=== PATIENT | female | born 2000 | race Caucasian/White ===

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

== ENCOUNTER 2021-07-18 17:59 | Emergency (ER) | payer OTHER, MEDICAID, SELFPAY ==
[2021-07-18] VITALS (11 sets, daily range): BP systolic 108–119; BP diastolic 58–81; PULSE 62–101; RESP 15–25; TEMP 36.7; O2SAT 91–100; BMI 17.3
--- NOTE | 2021-07-18 22:06 | ED_ITS ---
HPI - General Adult <Barbi Vasquez MD - Last Filed: 07/22/21 07:26> General Chief complaint: Weakness Stated complaint: weakness, has had couple hits to head,feels dehy Time Seen by Provider: 07/18/21 22:06 Source: patient Mode of arrival: Ambulatory History of Present Illness HPI narrative: 20-year-old woman with complex psychiatric history presents with concerns that she is dehydrated. She states that she had been receiving care through [facility] in [place] previously however for therapy to be effective for her she needs in person treatment. She states she had seen a psychiatrist previously and had been on medications but is no longer using anything. She has complaints of worsening depression, obsessive-compulsive disorder where she tries to find the closest thing to hit to harm herself that will cause the least amount of harm. She has a history of cutting but has not d one that in a number of years. She finds when she gets frustrated her OCD gets worse and she wants to hurt things and herself more. She has complaints of difficulty with eating or swallowing that are essentially psychogenic. She states that she has to be physically and emotionally hungry to be able to tolerate any p.o. intake including liquids. About a year ago she reports losing almost 25% of her body weight and over the last 6 months she notes that her weight will fluctuate up and down but she has continued to gradually lose weight to the point where she is getting weaker. She had an episode 4 days ago where she was so weak that she could not actually stand up and walk and this caused increased frustration which exacerbated her OCD. She does not describe specific suicidal ideation however she states that she has not had anything to eat or drink in the last 5 days. She does have some Gatorade and states that she understands she needs to drink it but finds that she cannot physically do so. Comes in she comes in requesting help with the presumed dehydration and overall weakness. When asked if she feels that she needs to be in the hospital for her psychiatric issues she reports that she thinks that she does however she was hoping to see her father this weekend and go to some type of outdoor concert a week from now suggesting advanced planning and arguing against suicidal ideation. She denies headaches, chest pain, palpitations she notes that she gets short of breath with activity is she has gotten weaker and weaker. She is having no significant headaches. No nausea vomiting or diarrhea as long as she eats no food. Related Data Home Medications Medication Instructions Recorded Confirmed control PO 07/18/21 07/18/21 Vitamin D PO 07/18/21 07/18/21 Previous Rx's Medication Instructions Recorded metoclopramide HCl 10 mg 10 mg PO Q6H PRN #10 tab 07/19/21 disintegrating tablet Allergies Allergy/AdvReac Type Severity Reaction Status Date / Time No Known Drug Allergies Allergy Verified 07/18/21 18:04 Review of Systems <Barbi Vasquez MD - Last Filed: 07/22/21 07:26> Review of Systems Narrative: Remainder of complete review of systems is otherwise unremarkable except for that included in the HPI. Patient History <Barbi Vasquez MD - Last Filed: 07/22/21 07:26> Medical History (Updated 07/19/21 @ 03:31 by Barbi Vasquez MD) Depression with anxiety Eating disorder Obsessive compulsive disorder Social History Smoking Status: Never smoker Smoking Status: Never smoker alcohol intake frequency: holidays/special occasions only Substance Use Type: marijuana Exam <Barbi Vasquez MD - Last Filed: 07/22/21 07:26> Initial Vital Signs Initial Vital Signs: Vital Signs Temperature 98.1 F 07/18/21 18:04 Pulse Rate 101 H 07/18/21 18:04 Respiratory Rate 15 07/18/21 18:04 Blood Pressure 112/80 07/18/21 18:04 Pulse Oximetry 98 07/18/21 18:04 General: Very thin but not quite to the point of cachexia, in no acute d istress. Able to give a complete and coherent history. HEENT: Moist mucous membranes, normal sclera with reactive pupils, Neck: No JVD, supple Respiratory: Lungs are clear to auscultation, no wheezing no rales no rhonchi. Full and symmetrical air movement Cardiac: Regular rate and rhythm no murmurs no bruits Abdomen: Soft, nontender, good bowel tones, no flank pain Skin: Warm and dry, no rashes, no recent signs of self-harm Neurologic: Globally weak but otherwise Grossly neurologically intact with no obvious asymmetries or abnormalities Extremities: 3 to 4-day-old bruises to the lateral aspect and posterior aspect of her right thigh after a fall. Otherwise well perfused Psych: Cooperative, flat affect and while she describes all of her difficulties with eating and swallowing she seems very distant with poor overall insight <Danay Morrissey DO - Last Filed: 07/19/21 19:51> Initial Vital Signs Initial Vital Signs: Vital Signs Temperature 98.1 F 07/18/21 18:04 Pulse Rate 101 H 07/18/21 18:04 Respiratory Rate 15 07/18/21 18:04 Blood Pressure 112/80 07/18/21 18:04 Pulse Oximetry 98 07/18/21 18:04 Course <Barbi Vasquez MD - Last Filed: 07/22/21 07:26> Orders Ordered: Discontinued Medications Sodium Chloride (Normal Saline 0.9%) 1,000 mls @ 1,000 mls/hr IV BOLUS ONE Stop: 07/18/21 23:19 Last Infusion: 07/19/21 00:25 Dose: 0 mls/hr Documented by: Admin: 07/18/21 22:38 Dose: 1,000 mls/hr Documented by: SMITHA Potassium Phosphate 15 mmol/ (Sodium Chloride) 255 mls @ 63.75 mls/hr IV NOW ONE Stop: 07/19/21 02:00 Last Infusion: 07/19/21 07:05 Dose: 0 mls/hr Documented by: Admin: 07/19/21 02:30 Dose: 63.75 mls/hr Documented by: SMITHA Potassium Phosphate 15 mmol/ (Sodium Chloride) 255 mls @ 63.75 mls/hr IV NOW ONE Stop: 07/19/21 02:28 Last Admin: 07/19/21 03:03 Dose: Not Given Documented by: LAURA Magnesium Sulfate (Magnesium Sulfate) 2 gm in 50 mls @ 150 mls/hr IV NOW ONE Stop: 07/19/21 03:48 Last Infusion: 07/19/21 04:50 Dose: 0 mls/hr Documented by: OSCAR Cosigned by: [email or web address] Admin: 07/19/21 04:02 Dose: 150 mls/hr Documented by: OSCAR Cosigned by: SMITHA Metoclopramide HCl (Metoclopramide 10 Mg/2 Ml Inj) 10 mg IV NOW ONE Stop: 07/19/21 19:06 Last Admin: 07/19/21 19:17 Dose: 10 mg Documented by: ILSA Vital Signs Vital signs: Vital Signs - 8 hr 07/19/21 12:00 07/19/21 12:30 07/19/21 13:00 Pulse Rate 58 L 52 L 82 Respiratory Rate 15 15 Blood Pressure Pulse Oximetry 98 98 98 07/19/21 13:30 07/19/21 14:00 07/19/21 14:30 Pulse Rate 55 L 74 69 Respiratory Rate 15 16 15 Blood Pressure Pulse Oximetry 99 98 98 07/19/21 18:51 Pulse Rate 84 Respiratory Rate 18 Blood Pressure 121/65 Pulse Oximetry 98 <Danay Morrissey DO - Last Filed: 07/19/21 19:51> Orders Ordered: Discontinued Medications Sodium Chloride (Normal Saline 0.9%) 1,000 mls @ 1,000 mls/hr IV BOLUS ONE Stop: 07/18/21 23:19 Last Infusion: 07/19/21 00:25 Dose: 0 mls/hr Documented by: Admin: 07/18/21 22:38 Dose: 1,000 mls/hr Documented by: SMITHA Potassium Phosphate 15 mmol/ (Sodium Chloride) 255 mls @ 63.75 mls/hr IV NOW ONE Stop: 07/19/21 02:00 Last Infusion: 07/19/21 07:05 Dose: 0 mls/hr Documented by: Admin: 07/19/21 02:30 Dose: 63.75 mls/hr Documented by: SMITHA Potassium Phosphate 15 mmol/ (Sodium Chloride) 255 mls @ 63.75 mls/hr IV NOW ONE Stop: 07/19/21 02:28 Last Admin: 07/19/21 03:03 Dose: Not Given Documented by: LAURA Magnesium Sulfate (Magnesium Sulfate) 2 gm in 50 mls @ 150 mls/hr IV NOW ONE Stop: 07/19/21 03:48 Last Infusion: 07/19/21 04:50 Dose: 0 mls/hr Documented by: OSCAR Cosigned by: [email or web address] Admin: 07/19/21 04:02 Dose: 150 mls/hr Documented by: OSCAR Cosigned by: SMITHA Metoclopramide HCl (Metoclopramide 10 Mg/2 Ml Inj) 10 mg IV NOW ONE Stop: 07/19/21 19:06 Last Admin: 07/19/21 19:17 Dose: 10 mg Documented by: ILSA Vital Signs Vital signs: Vital Signs - 8 hr 07/19/21 12:00 07/19/21 12:30 07/19/21 13:00 Pulse Rate 58 L 52 L 82 Respiratory Rate 15 15 Blood Pressure Pulse Oximetry 98 98 98 07/19/21 13:30 07/19/21 14:00 07/19/21 14:30 Pulse Rate 55 L 74 69 Respiratory Rate 15 16 15 Blood Pressure Pulse Oximetry 99 98 98 07/19/21 18:51 Pulse Rate 84 Respiratory Rate 18 Blood Pressure 121/65 Pulse Oximetry 98 Medical Decision Making <Barbi Vasquez MD - Last Filed: 07/22/21 07:26> Lab Data Result diagrams: 07/18/21 22:30 07/18/21 22:30 Labs: Lab Results 07/18/21 07/18/21 07/18/21 Range/Units 22:30 22:30 22:30 WBC 9.0 (4.5-11.0) X10^3/uL RBC 4.97 (4.0-5.2) X10^6/uL Hgb 14.8 (12.0-16.0) g/dL Hct 43.2 (36-46) % MCV 87.0 (80-100) fL MCH 29.8 (26-34) PG MCHC 34.3 (30-36) % RDW 13.7 (11.6-14.8) % Plt Count 233 (150-400) X10^3/uL Neut % (Auto) 59.3 (50-75) % Lymph % (Auto) 29.6 (25-40) % Finney % (Auto) 9.2 (3-14) % Eos % (Auto) 1.2 L (2-4) % Baso % (Auto) 0.7 (0-2) % Neut # (Auto) 5300 (3671-6807) /uL Lymph # (Auto) 2700 (5340-7268) /uL Finney # (Auto) 800 (0-900) /uL Eos # (Auto) 100 (0-450) /uL Baso # (Auto) 100 (0-100) /uL Sodium 141 (137-145) mmol/L Potassium 4.3 (3.4-5.1) mmol/L Chloride 106 (98-107) mmol/L Carbon Dioxide 26 (22-32) mmol/L BUN 18 H (7-17) mg/dL Creatinine 0.76 (0.52-1.04) mg/dL Estimated GFR > 60 (>60) mL/min BUN/Creatinine Ratio 23.7 H (6-22) Glucose 86 (70-100) mg/dL Calcium 9.1 (8.4-10.2) mg/dL Phosphorus 3.6 L (4.5-5.5) mg/dL Magnesium 2.2 (1.6-2.3) mg/dL Total Bilirubin 0.8 (0.2-1.3) mg/dL AST 24 (14-36) IU/L ALT 14 (<35) IU/L Alkaline Phosphatase 63 (38-126) U/L Total Protein 8.2 (6.3-8.2) g/dL Albumin 4.8 (3.5-5.0) g/dL Globulin 3.4 (1.7-4.1) g/dL Albumin/Globulin Ratio 1.4 (1.0-2.8) TSH (0.47-4.68) uIU/mL Urine RBC (0-5/HPF) Urine WBC (0-5/HPF) Ur Squamous Epith Cells (0-5/HPF) Urine Bacteria (None) Ur Culture Indicated? SARS-CoV-2 (PCR) (Negative) 07/18/21 07/18/21 07/19/21 Range/Units 22:30 22:35 02:30 WBC (4.5-11.0) X10^3/uL RBC (4.0-5.2) X10^6/uL Hgb (12.0-16.0) g/dL Hct (36-46) % MCV (80-100) fL MCH (26-34) PG MCHC (30-36) % RDW (11.6-14.8) % Plt Count (150-400) X10^3/uL Neut % (Auto) (50-75) % Lymph % (Auto) (25-40) % Finney % (Auto) (3-14) % Eos % (Auto) (2-4) % Baso % (Auto) (0-2) % Neut # (Auto) (9370-5591) /uL Lymph # (Auto) (7516-0503) /uL Finney # (Auto) (0-900) /uL Eos # (Auto) (0-450) /uL Baso # (Auto) (0-100) /uL Sodium (137-145) mmol/L Potassium (3.4-5.1) mmol/L Chloride (98-107) mmol/L Carbon Dioxide (22-32) mmol/L BUN (7-17) mg/dL Creatinine (0.52-1.04) mg/dL Estimated GFR (>60) mL/min BUN/Creatinine Ratio (6-22) Glucose (70-100) mg/dL Calcium (8.4-10.2) mg/dL Phosphorus (4.5-5.5) mg/dL Magnesium (1.6-2.3) mg/dL Total Bilirubin (0.2-1.3) mg/dL AST (14-36) IU/L ALT (<35) IU/L Alkaline Phosphatase (38-126) U/L Total Protein (6.3-8.2) g/dL Albumin (3.5-5.0) g/dL Globulin (1.7-4.1) g/dL Albumin/Globulin Ratio (1.0-2.8) TSH 0.969 (0.47-4.68) uIU/mL Urine RBC 30-100/hpf H (0-5/HPF) Urine WBC 0-1/hpf (0-5/HPF) Ur Squamous Epith Cells 0-1 /hpf (0-5/HPF) Urine Bacteria Occasional (0-1) (None) Ur Culture Indicated? Cult not indicated SARS-CoV-2 (PCR) Negative (Negative) Point of Care Testing Test Results Negative Urine Dip Bedside Urine Glucose Negative Bedside Urine Bilirubin - Negative Bedside Urine Ketone + 15 Urine Specific [place] 1.025 Bedside Urine Occult Blood +++ Bedside Urine pH 6.0 Bedside Urine Protein + 30 Bedside Urine Urobilinogen - Negative Bedside Urine Nitrite - Negative Bedside Urine Leukocytes - Negative Esterase Point of care testing: Point of Care Testing Test Results Negative Urine Dip Bedside Urine Glucose Negative Bedside Urine Bilirubin - Negative Bedside Urine Ketone + 15 Urine Specific [place] 1.025 Bedside Urine Occult Blood +++ Bedside Urine pH 6.0 Bedside Urine Protein + 30 Bedside Urine Urobilinogen - Negative Bedside Urine Nitrite - Negative Bedside Urine Leukocytes - Negative Esterase MDM Narrative Medical decision making narrative: 20-year-old woman with worsening psychiatric symptoms most concerning is her inability to eat or drink unless she is both physically and emotionally prepared to do so, with being not emotionally prepared to eat or drink for the last 4+ days. Significant weight loss. She has no acute renal failure however phosphorus and magnesium were both low. In the setting of chronic starvation and eating disorders electrolyte abnormalities and refeeding syndrome can be concerning. Phosphorus and magnesium are given IV along with 2 L of IV fluid and she is maintained on telemetry to look for any type of cardiac arrhythmias. She does have blood in her urine but is currently menstruating and has no dysuria symptoms. At this time she is willing to consider inpatient treatment for her obsessive- compulsive disorder and difficulty in eating and drinking. She is not currently suicidal. She does show signs of planning for future activities. Poor overall insight. Concerned that her foot extended fast is causing her overall weakness. Along with phosphorus her magnesium will be replaced. After this, she will be medically cleared and will need social work evaluation. She remains voluntary at this point but will likely benefit from inpatient help with her worsening eating disorder, obsessive-compulsive disorder and bouts of severe depression. <Danay Morrissey, - Last Filed: 07/19/21 19:51> Lab Data Labs: Lab Results 07/18/21 07/18/21 07/18/21 Range/Units 22:30 22:30 22:30 WBC 9.0 (4.5-11.0) X10^3/uL RBC 4.97 (4.0-5.2) X10^6/uL Hgb 14.8 (12.0-16.0) g/dL Hct 43.2 (36-46) % MCV 87.0 (80-100) fL MCH 29.8 (26-34) PG MCHC 34.3 (30-36) % RDW 13.7 (11.6-14.8) % Plt Count 233 (150-400) X10^3/uL Neut % (Auto) 59.3 (50-75) % Lymph % (Auto) 29.6 (25-40) % Finney % (Auto) 9.2 (3-14) % Eos % (Auto) 1.2 L (2-4) % Baso % (Auto) 0.7 (0-2) % Neut # (Auto) 5300 (4242-6978) /uL Lymph # (Auto) 2700 (5908-4010) /uL Finney # (Auto) 800 (0-900) /uL Eos # (Auto) 100 (0-450) /uL Baso # (Auto) 100 (0-100) /uL Sodium 141 (137-145) mmol/L Potassium 4.3 (3.4-5.1) mmol/L Chloride 106 (98-107) mmol/L Carbon Dioxide 26 (22-32) mmol/L BUN 18 H (7-17) mg/dL Creatinine 0.76 (0.52-1.04) mg/dL Estimated GFR > 60 (>60) mL/min BUN/Creatinine Ratio 23.7 H (6-22) Glucose 86 (70-100) mg/dL Calcium 9.1 (8.4-10.2) mg/dL Phosphorus 3.6 L (4.5-5.5) mg/dL Magnesium 2.2 (1.6-2.3) mg/dL Total Bilirubin 0.8 (0.2-1.3) mg/dL AST 24 (14-36) IU/L ALT 14 (<35) IU/L Alkaline Phosphatase 63 (38-126) U/L Total Protein 8.2 (6.3-8.2) g/dL Albumin 4.8 (3.5-5.0) g/dL Globulin 3.4 (1.7-4.1) g/dL Albumin/Globulin Ratio 1.4 (1.0-2.8) TSH (0.47-4.68) uIU/mL Urine RBC (0-5/HPF) Urine WBC (0-5/HPF) Ur Squamous Epith Cells (0-5/HPF) Urine Bacteria (None) Ur Culture Indicated? SARS-CoV-2 (PCR) (Negative) 07/18/21 07/18/21 07/19/21 Range/Units 22:30 22:35 02:30 WBC (4.5-11.0) X10^3/uL RBC (4.0-5.2) X10^6/uL Hgb (12.0-16.0) g/dL Hct (36-46) % MCV (80-100) fL MCH (26-34) PG MCHC (30-36) % RDW (11.6-14.8) % Plt Count (150-400) X10^3/uL Neut % (Auto) (50-75) % Lymph % (Auto) (25-40) % Finney % (Auto) (3-14) % Eos % (Auto) (2-4) % Baso % (Auto) (0-2) % Neut # (Auto) (5833-7468) /uL Lymph # (Auto) (2011-4991) /uL Finney # (Auto) (0-900) /uL Eos # (Auto) (0-450) /uL Baso # (Auto) (0-100) /uL Sodium (137-145) mmol/L Potassium (3.4-5.1) mmol/L Chloride (98-107) mmol/L Carbon Dioxide (22-32) mmol/L BUN (7-17) mg/dL Creatinine (0.52-1.04) mg/dL Estimated GFR (>60) mL/min BUN/Creatinine Ratio (6-22) Glucose (70-100) mg/dL Calcium (8.4-10.2) mg/dL Phosphorus (4.5-5.5) mg/dL Magnesium (1.6-2.3) mg/dL Total Bilirubin (0.2-1.3) mg/dL AST (14-36) IU/L ALT (<35) IU/L Alkaline Phosphatase (38-126) U/L Total Protein (6.3-8.2) g/dL Albumin (3.5-5.0) g/dL Globulin (1.7-4.1) g/dL Albumin/Globulin Ratio (1.0-2.8) TSH 0.969 (0.47-4.68) uIU/mL Urine RBC 30-100/hpf H (0-5/HPF) Urine WBC 0-1/hpf (0-5/HPF) Ur Squamous Epith Cells 0-1 /hpf (0-5/HPF) Urine Bacteria Occasional (0-1) (None) Ur Culture Indicated? Cult not indicated SARS-CoV-2 (PCR) Negative (Negative) Point of Care Testing Test Results Negative Urine Dip Bedside Urine Glucose Negative Bedside Urine Bilirubin - Negative Bedside Urine Ketone + 15 Urine Specific [place] 1.025 Bedside Urine Occult Blood +++ Bedside Urine pH 6.0 Bedside Urine Protein + 30 Bedside Urine Urobilinogen - Negative Bedside Urine Nitrite - Negative Bedside Urine Leukocytes - Negative Esterase Point of care testing: Point of Care Testing Test Results Negative Urine Dip Bedside Urine Glucose Negative Bedside Urine Bilirubin - Negative Bedside Urine Ketone + 15 Urine Specific [place] 1.025 Bedside Urine Occult Blood +++ Bedside Urine pH 6.0 Bedside Urine Protein + 30 Bedside Urine Urobilinogen - Negative Bedside Urine Nitrite - Negative Bedside Urine Leukocytes - Negative Esterase ECG Data Interpretation: Normal sinus rhythm rate 63 NJ interval 132 QRS [address] changes MDM Narrative Medical decision making narrative: 20-year-old woman with worsening psychiatric symptoms most concerning is her inability to eat or drink unless she is both physically and emotionally prepared to do so, with being not emotionally prepared to eat or drink for the last 4+ days. Significant weight loss. She has no acute renal failure however phosphorus and magnesium were both low. In the setting of chronic starvation and eating disorders electrolyte abnormalities and refeeding syndrome can be concerning. Phosphorus and magnesium are given IV along with 2 L of IV fluid and she is maintained on telemetry to look for any type of cardiac arrhythmias. She does have blood in her urine but is currently menstruating and has no dysuria symptoms. At this time she is willing to consider inpatient treatment for her obsessive- compulsive disorder and difficulty in eating and drinking. She is not currently suicidal. She does show signs of planning for future activities. Poor overall insight. Concerned that her foot extended fast is causing her overall weakness. Along with phosphorus her magnesium will be replaced. After this, she will be medically cleared and will need social work evaluation. She remains voluntary at this point but will likely benefit from inpatient help with her worsening eating disorder, obsessive-compulsive disorder and bouts of severe depression. [facility]-patient has been signed out to me by Dr. Moreira. Seen evaluated patient myself. Replacing electrolytes EKG does not show any abnormalities. She has been seen evaluated by social service coordinator agree that inpatient may require be beneficial to her. She is voluntarily agrees to go. Unfortunately there are no beds available. Patient is reassessed she has eaten some throughout the day. She has a little bit nauseous now. Discussion with her at this time she feels safe in able to go home. She is encouraged to return emergency department at any time. She seems reliable in responsible she brought herself here at this time. She is not suicidal or homicidal. He is able to contract for safety. She has outpatient follow-up in 2 days on Thursday. She is given crisis resources. At this time she did have some mild electrolyte abnormalities possible refeeding syndrome although exceedingly rare and normal EKG. She has tolerated food here. Discharge Plan Departure Patient Disposition: Home Clinical Impression: Eating disorder, OCD (obsessive compulsive disorder), Depression, Excessive weight loss, Malnutrition, Hypophosphatasia, Hypomagnesemia Instructions: Eating Healthfully: Tips to Make It Easier Activity Restrictions/Additional Instructions: *You have been diagnosed with OCD, eating disorders *What to do: I do recommend that you talk with the talent coordinator and may help you. Try to increase your and fluid intake If you are feeling suicidal or having suicidal thoughts: Call: Suicide Hotline: Visit: www.[employer] Text: 981245 *Continue to take medications as directed Reglan 5 mg every 6 hours needed for nausea *Follow up with your primary care provider in 2-3 days or call [phone] please see psychiatrist referral on Thursday as arranged *Return to ER if you should have thoughts of harming self decreased eating or any new, worsening or concerning symptoms Prescriptions: New metoclopramide HCl 10 mg tablet,disintegrating 10 mg PO Q6H PRN (Reason: nausea and vomiting) Qty: 10 0RF No Action control PO 0RF Vitamin D PO 0RF Referrals: Alee Ritter MD [Primary Care Provider] -
[2021-07-18] MEDS: SODIUM CHLORIDE 0.9% 1,000 ML 1000 ML IV (22:38)
[2021-07-18 22:43] LABS: Add Manual Diff / Slide Review NO; Basophils Absolute Auto 100 /uL (0-100); Basophils Percent Auto 0.7 % (0-2); Eosinophils Absolute Auto 100 /uL (0-450); Eosinophils Percent Auto 1.2 % (2-4); Hematocrit 43.2 % (36-46); Hemoglobin 14.8 g/dL (12.0-16.0); Lymphocytes Absolute Auto 2700 /uL (1100-4500); Lymphocytes Percent Auto 29.6 % (25-40); Mean Corpuscular HGB Conc 34.3 % (30-36); Mean Corpuscular Hemoglobin 29.8 PG (26-34); Monocytes Absolute Auto 800 /uL (0-900); Monocytes Percent Auto 9.2 % (3-14); Neutrophils Absolute Auto 5300 /uL (1500-7000); Neutrophils Percent Auto 59.3 % (50-75); Platelet Count 233 X10^3/uL (150-400); Red Blood Cell Count 4.97 X10^6/uL (4.0-5.2); Red Cell Distribution Width 13.7 % (11.6-14.8)
[2021-07-18 22:49] LABS: Alanine Aminotransferase 14 IU/L (<35); Albumin 4.8 g/dL (3.5-5.0); Albumin Globulin Ratio 1.4 (1.0-2.8); Alkaline Phosphatase 63 U/L (38-126); Aspartate Aminotransferase 24 IU/L (14-36); BUN Creatinine Ratio 23.7 (6-22); Bilirubin Total 0.8 mg/dL (0.2-1.3); Blood Urea Nitrogen 18 mg/dL (7-17); Calcium 9.1 mg/dL (8.4-10.2); Carbon Dioxide 26 mmol/L (22-32); Chloride 106 mmol/L (98-107); Estimated Glomerular Filt Rate > 60 mL/min (>60); Globulin 3.4 g/dL (1.7-4.1); Glucose 86 mg/dL (70-100); HEMOLYSIS < 15 (0-50); Phosphorous 3.6 mg/dL (4.5-5.5); Potassium 4.3 mmol/L (3.4-5.1); Sodium 141 mmol/L (137-145); Total Protein 8.2 g/dL (6.3-8.2)
[2021-07-18 22:54] LABS: COVID19 -Nasal RAPID Negative (Negative)
[2021-07-18 23:05] LABS: Magnesium 2.2 mg/dL (1.6-2.3)
[2021-07-18 23:36] LABS: Thyroid Stimulating Hormone 0.969 uIU/mL (0.47-4.68)
[2021-07-19] VITALS (34 sets, daily range): BP systolic 99–121; BP diastolic 56–75; PULSE 52–84; RESP 12–35; O2SAT 95–100
[2021-07-19] MEDS: POTASSIUM PHOSPHATE 15 MMOL in SODIUM CHLORIDE 0.9% 250 ML 63.75 MMOL IV (02:30)
[2021-07-19 03:22] LABS: Bacteria Urine Occasional (0-1); RBC Urine 30-100/HPF (0-5/HPF); Squamous Epithelial Cell Urine 0-1 /HPF (0-5/HPF); WBC Urine 0-1/HPF (0-5/HPF)
[2021-07-19 03:23] LABS: Culture Indicated Urine Cult Not Indicated
[2021-07-19] MEDS: MAGNESIUM SULFATE 2 GM/50 ML PIGGYBACK IV (04:02)
--- NOTE | 2021-07-19 13:57 | CM.SWNOTE ---
BREEDING TECHNICIAN Assessment BREEDING TECHNICIAN - Supervisor Drawing Assessment BREEDING TECHNICIAN - Supervisor Drawing Assessment Time Spent with Patient Start date 07/19/21 Visit Start Time 12:35 End date 07/19/21 Visit End Time 13:05 Total time Care Management spent on 30 minutes patient visit-in minutes Mental Health Screening Include Onset, Duration, Intensity Presenting Problem Patient presents to the ED due to concerns of dehydration. Patient endorses increasing and worsening depression, obsessive compulsive disorder and recent self harm. Patient endorses increasing SI since last December with thoughts of plans. Patient denies curernt SI. Patient endorses she initially went to urgent care and they recommended that patient be seen at the Emergency Department. Precipitating Event(s) Patient endorses increased frustration with herself, ongoing thoughts of worthlessness and uselessness when thinking about herself and her daily life. Patient has been unable to work or go to school and spends her days mostly trying to rest and not energized enough to engage in activities of interest. Patient Strengths Patient is seeking help, patient plans to try to reconnect with previous MH provider from 2 years ago. Current Behavioral Health Provider(s) Patient does not have a [facility] Facility, Provider, Ph. # current MH provider. Patient states she previously saw Dr. Alexey Steele at [facility] ( Ph. # [phone]), patient states she also saw various therapists there and has hx of prescriptions. Patient denies current rx. Psych. Hx Mental Health and Chemical Patient has hx of Depression, Dependency Anxiety, OCD, self harm, SI and eating disorder. Patient endorses occasional marijuana use when anxious. Patient denies ETOH and other substance use and states that ETOH made her sick. Family Hx of Behavioral Abuse None reported. Patient endorses her mother has hx of MH and is seeing a psychiatrist. Psychiatric Hospitalizations (date(s)/ No hx location) Psychosocial information & Support Patient is 20 y/o female who Systems resides with mother and younger sister in [place]. Patient endorses her father lives in [place], [place] and she visits him almost weekly. School/Work Patient states she is not employed or going to school. 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 Legal Concerns Legal Matters - Outstanding Issues None reported Mental Status Orientation (Person/Place/Time) A/Ox4 Stated Mood not too terribly bad Affect (Congruent with Mood?) flat, tearful at times, congruent with mood Thought Content - Specify/Describe Patient denies paranoia, Obsessions, Delusions, Hallucinations visual hallucinations and auditory hallucinations. Patient endorses constant worry and anxiety. Thought Processes (Exmperg-Olpkwbub-Ctvu coherent Hzhfarsc-Eztapjkf-Btfawrppty- Ehguuhvrmojqez-Qxadkyd-Wwshsxmlqdtz- Thought Blocking) Speech (Bhzbnj-Rhgm-Clkuzyh-Rapid-Soft- soft/normal Loud-Pressured) Motor (Juihhy-Kxqoybnlo-Ngzo-Other) normal, not formally assessed Insight (Lgsx-Jldu-Zwrs/Limited) fair/limited due to age Judgement (Zxui-Vecq-Cgrh/Limited) fair/limited due to age Impulse Control (Adequate-Impaired) adequate Memory (Nkfizitfi-Rgwlre-Lxkjqm, intact, not formally assessed Impaired-Intact) Concentration (Intact-Impaired) intact Attention (Intact-Impaired) intact Behavior (Appropriate-Inappropriate) appropriate Additional Comment Patient presents as calm, communicative and cooperative. Risk Assessment Suicidal Ideation (Plan) Yes Homicidal Ideation (Plan) No Comment Patient denies HI. Patient denies current SI at the moment but states her SI has been increasing and worsening since December 2020. Patient endorses thoughts of not drinking water and walking until she collapsed. Patient has currently gone two days without drinking prior to visit to ED. Patient endorses her understanding that when she doesn't eat she is harming herself. Patient endorses history of self harm by cutting and hitting self. Patient endorses a couple days ago she was upset and hit her leg and later found it to be bruised. Patient endorses hx of breaking a glass on her thumb in April 2020. Per EMR, patient was seen for this incident in March 2020. Patient endorses that she did not state that the intent was self harm due to worry of concern from parents. Patient acknowledges today that patient was engaging in self harm during that incident. Intervention Intervention BREEDING TECHNICIAN enters room to meet with patient. Patient endorses hx of eating issues, depression, anxiety, OCD, SI and self harm. Patient endorses that she currently does not have a MH provider but is hoping to re-establish care soon. Patient endorses hopelessness, thoughts of worthlessness and being useless. Patient endorses issues with sleeping and concern for her energy to engage in daily activities. BREEDING TECHNICIAN discusses voluntary inpatient hospitalization and patient endorses agreement and understanding. It is the opinion of this BREEDING TECHNICIAN that patient is gravely disabled and in need of voluntary inpatient hospitalization for safety, medication management and crisis stabilization. BREEDING TECHNICIAN reviews the above with ED provider Dr. Morrissey who indicates agreement and understanding. Plan RA Plan BREEDING TECHNICIAN to seek voluntary inpatient bed for patient when medically clear. Sherlyn Zavala, [employer]
--- NOTE | 2021-07-19 18:43 | CM.SWNOTE ---
BARREL FILLER HEAD Note BARREL FILLER HEAD call [facility] for voluntary bed census. BARREL FILLER HEAD calls [facility], it is reported the unit is full. BARREL FILLER HEAD calls [facility] intake, it is reported that they have beds and can review patient. BARREL FILLER HEAD faxes clinicals for review. [facility] calls and reports they are declining patient due to patient denying active SI and concern for patient's ability to independently eat and drink, and concern for addressing patient's eating disorder. BARREL FILLER HEAD calls [facility] intake, it is reported that they have beds and can review patient. BARREL FILLER HEAD faxes clinicals for review. BARREL FILLER HEAD calls [facility] intake and it is reported that patient is declined due to concern for patient's ability to independently eat and drink and concern for addressing patient's eating disorder. BARREL FILLER HEAD reviews the above with patient. Patient states that she feels safe to d/c to home and can contract for safety and contact friends in times of worsening symptoms. Patient states she is experiencing nausea and dizziness. BARREL FILLER HEAD reviews this with RN and ED provider for further evaluation. BARREL FILLER HEAD provides patient with information about eating disorder residential and outpatient facilities, provides crisis contacts and encourages patient to f/u with Psych referral from PCP on Thursday. BARREL FILLER HEAD offers crisis line f/u calls this weekend and patient declines due to anxiety related to phone calls. Patient endorses comfort in texting the crisis line as needed. It is the opinion of this BARREL FILLER HEAD that patient is safe to d/c to home with outpatient f/u. Patient endorses she can contract for safety, seek out outpatient provider and return to ED if symptoms worsen. Plan: ED provider to f/u with patient's new symptoms of nausea and dizziness, patient to d/c to home with family when medically celar. SAMSON Gay
[2021-07-19] MEDS: METOCLOPRAMIDE 10 MG/2 ML INJ IV (19:17)
== END 2021-07-19 19:44 | disposition home or self-care (01) ==
PROVIDERS: Emergency Medicine; Emergency Provider Emergency Medicine; PCP Family Medicine
DX: F32.9 Major depressive disorder, single episode, unspecified (principal); F42.9 Obsessive-compulsive disorder, unspecified; F50.9 Eating disorder, unspecified; E46 Unspecified protein-calorie malnutrition; E83.39 Other disorders of phosphorus metabolism; E83.42 Hypomagnesemia; R11.0 Nausea; Z20.822 Contact with and (suspected) exposure to COVID-19
CPT/HCPCS: 36415; 80053; 81003; 81015; 81025; 83735; 84100; 84443; 85025; 87086; 87635; 93005; 93010; 96361; 96365; 96366; 96368; 96375; 99284; C9803; J2765; J3475

== ENCOUNTER 2021-12-09 03:53 | Emergency (ER) | payer OTHER, MEDICAID, SELFPAY ==
[2021-12-09 04:08] VITALS: BP 123/82; PULSE 82; RESP 18; TEMP 37.1; O2SAT 96; BMI 16.9
--- NOTE | 2021-12-09 04:28 | ED.PSYCH ---
HPI - Psych <Barbi Vasquez MD - Last Filed: 12/15/21 03:23> General Chief Complaint: Psychiatric Symptoms Stated Complaint: mental crisis Time Seen by Provider: 12/09/21 04:15 Mode of arrival: Ambulatory History of Present Illness HPI Narrative: 21-year-old individual who prefers they them or he him pronouns presents asking for help with acute psychiatric crisis. He states that he is not entirely sure what to do any simply does not know where else to go. He is concerned about hurting himself or perhaps doing ?something I might from?. He states that he still struggling with eating and has difficulty with textures and apparently his body saying ?this is not safe? and he simply not able to eat. He had 3 days where he was in able to drink water because of this. He notes that his mood has progressed to the point where he has no ability to continue to care for himself. He describes his bedroom (lives at home with his mother) as completely ?unlivable mess with food, dishes and trash all over the room?. He describes it as unlivable. He states that he was down with his father over the weekend when his grandmother came to visit his mother's house. His grandmother had threatened previously to completely clean his room and apparently managed to do so including getting rid of many of his personal items. When he came home this evening felt that the entirely clean bedroom ?pushed me over the edge? and left him with uncontrolled an inappropriate feelings of euphoria and uncontrolled last think fits. He tried hitting his head against the wall, he was not entirely sure why? but still was not able to stop laughing. He currently does have a counselor with [facility] but does not have a medicine prescriber. On no psychiatric medications but in the past has been on bupropion and trazodone. He is not actively suicidal and not responding to internal stimuli. He states that he had his counselor have discussed inpatient treatment previously. He was seen here in June with somewhat similar complaints and felt to be appropriate for inpatient care however no inpatient voluntary beds were available. He would consider inpatient treatment at this time. Related Data Home Medications Medication Instructions Recorded Confirmed control PO 07/18/21 07/18/21 Vitamin D PO 07/18/21 07/18/21 Previous Rx's Medication Instructions Recorded metoclopramide HCl 10 mg 10 mg PO Q6H PRN nausea and 07/19/21 disintegrating tablet vomiting #10 tabs Allergies Allergy/AdvReac Type Severity Reaction Status Date / Time No Known Drug Allergies Allergy Verified 07/18/21 18:04 Review of Systems <Barbi Vasquez MD - Last Filed: 12/15/21 03:23> Review of Systems Narrative: He notes continued difficulty with eating due to texture and taste a versions. Denies headache, cough, fever, chills. No nausea vomiting or diarrhea. No chest pain, dyspnea, palpitations. Not currently complaining of any self-harm or self cutting. Patient History <Barbi Vasquez MD - Last Filed: 12/15/21 03:23> Medical History Depression with anxiety Eating disorder Obsessive compulsive disorder Social History Smoking Status: Never smoker Smoking Status: Never smoker alcohol intake frequency: holidays/special occasions only Substance Use Type: marijuana Exam <Barbi Vasquez MD - Last Filed: 12/15/21 03:23> Initial Vital Signs Initial Vital Signs: Vital Signs Temperature 98.7 F 12/09/21 04:08 Pulse Rate 82 12/09/21 04:08 Respiratory Rate 18 12/09/21 04:08 Blood Pressure 123/82 12/09/21 04:08 Pulse Oximetry 96 12/09/21 04:08 Oxygen Delivery Method 12/09/21 04:08 General: Thin somewhat anxious with mild psychomotor agitation but able to focus with good eye contact and Able to give a complete and coherent history. HEENT: Moist mucous membranes, normal sclera with reactive pupils, Neck: No cervical adenopathy supple Respiratory: Lungs are clear to auscultation, no wheezing no rales no rhonchi. Full and symmetrical air movement Cardiac: Regular rate and rhythm no murmurs no bruits Abdomen: Soft, nontender, good bowel tones, no flank pain Skin: Warm and dry, no rashes Neurologic: Grossly neurologically intact with no obvious asymmetries or abnormalities Extremities: No trauma, well perfused Psych: Cooperative, anxious, seems to be unable to figure out what to do with himself even in the immediate time. Isn't sure if he should be sitting or standing, holding still or wiggling his feet. making eye contact or not <Gary Woods, DO - Last Filed: 12/09/21 19:30> Initial Vital Signs Initial Vital Signs: Vital Signs Temperature 98.7 F 12/09/21 04:08 Pulse Rate 82 12/09/21 04:08 Respiratory Rate 18 12/09/21 04:08 Blood Pressure 123/82 12/09/21 04:08 Pulse Oximetry 96 12/09/21 04:08 Oxygen Delivery Method 12/09/21 04:08 <Danay Morrissey DO - Last Filed: 12/11/21 00:42> Initial Vital Signs Initial Vital Signs: Vital Signs Temperature 98.7 F 12/09/21 04:08 Pulse Rate 82 12/09/21 04:08 Respiratory Rate 18 12/09/21 04:08 Blood Pressure 123/82 12/09/21 04:08 Pulse Oximetry 96 12/09/21 04:08 Oxygen Delivery Method 12/09/21 04:08 <Cheli Busby DO - Last Filed: 12/10/21 20:04> Initial Vital Signs Initial Vital Signs: Vital Signs Temperature 98.7 F 12/09/21 04:08 Pulse Rate 82 12/09/21 04:08 Respiratory Rate 18 12/09/21 04:08 Blood Pressure 123/82 12/09/21 04:08 Pulse Oximetry 96 12/09/21 04:08 Oxygen Delivery Method 12/09/21 04:08 Course <Barbi Vasquez MD - Last Filed: 12/15/21 03:23> Orders Ordered: Discontinued Medications Lorazepam (Lorazepam 0.5 Mg Tablet) 1 mg PO NOW ONE Stop: 12/09/21 04:51 Last Admin: 12/09/21 05:03 Dose: 1 mg Documented By: JODEE Vital Signs Vital signs: Vital Signs - 8 hr 12/10/21 12:30 12/10/21 12:30 12/10/21 12:37 Temperature Pulse Rate 86 Blood Pressure 97/56 L 95/56 L Pulse Oximetry 98 12/10/21 12:37 12/10/21 15:10 12/10/21 15:10 Temperature Pulse Rate 87 84 Blood Pressure 94/58 L Pulse Oximetry 98 98 12/10/21 15:31 Temperature 98.7 F Pulse Rate Blood Pressure Pulse Oximetry <Gary Woods DO - Last Filed: 12/09/21 19:30> Orders Ordered: Discontinued Medications Lorazepam (Lorazepam 0.5 Mg Tablet) 1 mg PO NOW ONE Stop: 12/09/21 04:51 Last Admin: 12/09/21 05:03 Dose: 1 mg Documented By: JODEE Vital Signs Vital signs: Vital Signs - 8 hr 12/10/21 12:30 12/10/21 12:30 12/10/21 12:37 Temperature Pulse Rate 86 Blood Pressure 97/56 L 95/56 L Pulse Oximetry 98 12/10/21 12:37 12/10/21 15:10 12/10/21 15:10 Temperature Pulse Rate 87 84 Blood Pressure 94/58 L Pulse Oximetry 98 98 12/10/21 15:31 Temperature 98.7 F Pulse Rate Blood Pressure Pulse Oximetry <Danay Morrissey, DO - Last Filed: 12/11/21 00:42> Orders Ordered: Discontinued Medications Lorazepam (Lorazepam 0.5 Mg Tablet) 1 mg PO NOW ONE Stop: 12/09/21 04:51 Last Admin: 12/09/21 05:03 Dose: 1 mg Documented By: JODEE Vital Signs Vital signs: Vital Signs - 8 hr 12/10/21 12:30 12/10/21 12:30 12/10/21 12:37 Temperature Pulse Rate 86 Blood Pressure 97/56 L 95/56 L Pulse Oximetry 98 12/10/21 12:37 12/10/21 15:10 12/10/21 15:10 Temperature Pulse Rate 87 84 Blood Pressure 94/58 L Pulse Oximetry 98 98 12/10/21 15:31 Temperature 98.7 F Pulse Rate Blood Pressure Pulse Oximetry <Cheli Busby, DO - Last Filed: 12/10/21 20:04> Orders Ordered: Discontinued Medications Lorazepam (Lorazepam 0.5 Mg Tablet) 1 mg PO NOW ONE Stop: 12/09/21 04:51 Last Admin: 12/09/21 05:03 Dose: 1 mg Documented By: JODEE Vital Signs Vital signs: Vital Signs - 8 hr 12/10/21 12:30 12/10/21 12:30 12/10/21 12:37 Temperature Pulse Rate 86 Blood Pressure 97/56 L 95/56 L Pulse Oximetry 98 12/10/21 12:37 12/10/21 15:10 12/10/21 15:10 Temperature Pulse Rate 87 84 Blood Pressure 94/58 L Pulse Oximetry 98 98 12/10/21 15:31 Temperature 98.7 F Pulse Rate Blood Pressure Pulse Oximetry MDM - Psych <Barbi Vasquez MD - Last Filed: 12/15/21 03:23> Lab Data Result diagrams: 12/09/21 05:08 12/09/21 05:08 Labs: Lab Results 12/09/21 12/09/21 12/09/21 Range/Units 04:30 05:02 05:08 WBC 13.8 H (4.5-11.0) X10^3/uL RBC 4.24 (4.0-5.2) X10^6/uL Hgb 12.6 (12.0-16.0) g/dL Hct 36.4 (36-46) % MCV 85.8 (80-100) fL MCH 29.7 (26-34) PG MCHC 34.6 (30-36) % RDW 13.3 (11.6-14.8) % Plt Count 255 (150-400) X10^3/uL Neut % (Auto) 68.3 (50-75) % Lymph % (Auto) 20.0 L (25-40) % [place] % (Auto) 10.3 (3-14) % Eos % (Auto) 0.8 L (2-4) % Baso % (Auto) 0.6 (0-2) % Neut # (Auto) 9400 H (3617-5641) /uL Lymph # (Auto) 2800 (6341-8513) /uL [place] # (Auto) 1400 H (0-900) /uL Eos # (Auto) 100 (0-450) /uL Baso # (Auto) 100 (0-100) /uL Sodium (137-145) mmol/L Potassium (3.4-5.1) mmol/L Chloride (98-107) mmol/L Carbon Dioxide (22-32) mmol/L BUN (7-17) mg/dL Creatinine (0.52-1.04) mg/dL Estimated GFR (>60) mL/min BUN/Creatinine Ratio (6-22) Glucose (70-100) mg/dL Calcium (8.4-10.2) mg/dL Total Bilirubin (0.2-1.3) mg/dL AST (14-36) IU/L ALT (<35) IU/L Alkaline Phosphatase (38-126) U/L Total Protein (6.3-8.2) g/dL Albumin (3.5-5.0) g/dL Globulin (1.7-4.1) g/dL Albumin/Globulin Ratio (1.0-2.8) TSH (0.47-4.68) uIU/mL U Opiates 300ng/mL cut Negative (Negative) Ur Oxycodone Screen Negative (Negative) Urine Methadone Screen Negative (Negative) Ur Barbiturates Screen Negative (Negative) U Tricyclic Antidepress Negative (Negative) Ur Phencyclidine Scrn Negative (Negative) Ur Amphetamines Screen Negative (Negative) U Methamphetamines Scrn Negative (Negative) Ur MDMA Scrn (Ecstasy) Negative (Negative) U Benzodiazepines Scrn Negative (Negative) Urine Cocaine Screen Negative (Negative) U Marijuana (THC) Screen Positive H (Negative) Ethyl Alcohol ( - 10) mg/dL SARS-CoV-2 (PCR) Positive H (Negative) 12/09/21 12/09/21 12/09/21 Range/Units 05:08 05:08 05:08 WBC (4.5-11.0) X10^3/uL RBC (4.0-5.2) X10^6/uL Hgb (12.0-16.0) g/dL Hct (36-46) % MCV (80-100) fL MCH (26-34) PG MCHC (30-36) % RDW (11.6-14.8) % Plt Count (150-400) X10^3/uL Neut % (Auto) (50-75) % Lymph % (Auto) (25-40) % [place] % (Auto) (3-14) % Eos % (Auto) (2-4) % Baso % (Auto) (0-2) % Neut # (Auto) (2468-2843) /uL Lymph # (Auto) (4212-1476) /uL [place] # (Auto) (0-900) /uL Eos # (Auto) (0-450) /uL Baso # (Auto) (0-100) /uL Sodium 141 (137-145) mmol/L Potassium 3.5 (3.4-5.1) mmol/L Chloride 105 (98-107) mmol/L Carbon Dioxide 25 (22-32) mmol/L BUN 7 (7-17) mg/dL Creatinine 0.64 (0.52-1.04) mg/dL Estimated GFR > 60 (>60) mL/min BUN/Creatinine Ratio 10.9 (6-22) Glucose 89 (70-100) mg/dL Calcium 9.0 (8.4-10.2) mg/dL Total Bilirubin 0.8 (0.2-1.3) mg/dL AST 26 (14-36) IU/L ALT 17 (<35) IU/L Alkaline Phosphatase 62 (38-126) U/L Total Protein 7.8 (6.3-8.2) g/dL Albumin 4.4 (3.5-5.0) g/dL Globulin 3.4 (1.7-4.1) g/dL Albumin/Globulin Ratio 1.3 (1.0-2.8) TSH 2.15 (0.47-4.68) uIU/mL U Opiates 300ng/mL cut (Negative) Ur Oxycodone Screen (Negative) Urine Methadone Screen (Negative) Ur Barbiturates Screen (Negative) U Tricyclic Antidepress (Negative) Ur Phencyclidine Scrn (Negative) Ur Amphetamines Screen (Negative) U Methamphetamines Scrn (Negative) Ur MDMA Scrn (Ecstasy) (Negative) U Benzodiazepines Scrn (Negative) Urine Cocaine Screen (Negative) U Marijuana (THC) Screen (Negative) Ethyl Alcohol < 10 ( - 10) mg/dL SARS-CoV-2 (PCR) (Negative) 12/10/21 Range/Units 13:47 WBC (4.5-11.0) X10^3/uL RBC (4.0-5.2) X10^6/uL Hgb (12.0-16.0) g/dL Hct (36-46) % MCV (80-100) fL MCH (26-34) PG MCHC (30-36) % RDW (11.6-14.8) % Plt Count (150-400) X10^3/uL Neut % (Auto) (50-75) % Lymph % (Auto) (25-40) % [place] % (Auto) (3-14) % Eos % (Auto) (2-4) % Baso % (Auto) (0-2) % Neut # (Auto) (8366-8416) /uL Lymph # (Auto) (9792-2464) /uL [place] # (Auto) (0-900) /uL Eos # (Auto) (0-450) /uL Baso # (Auto) (0-100) /uL Sodium (137-145) mmol/L Potassium (3.4-5.1) mmol/L Chloride (98-107) mmol/L Carbon Dioxide (22-32) mmol/L BUN (7-17) mg/dL Creatinine (0.52-1.04) mg/dL Estimated GFR (>60) mL/min BUN/Creatinine Ratio (6-22) Glucose (70-100) mg/dL Calcium (8.4-10.2) mg/dL Total Bilirubin (0.2-1.3) mg/dL AST (14-36) IU/L ALT (<35) IU/L Alkaline Phosphatase (38-126) U/L Total Protein (6.3-8.2) g/dL Albumin (3.5-5.0) g/dL Globulin (1.7-4.1) g/dL Albumin/Globulin Ratio (1.0-2.8) TSH (0.47-4.68) uIU/mL U Opiates 300ng/mL cut (Negative) Ur Oxycodone Screen (Negative) Urine Methadone Screen (Negative) Ur Barbiturates Screen (Negative) U Tricyclic Antidepress (Negative) Ur Phencyclidine Scrn (Negative) Ur Amphetamines Screen (Negative) U Methamphetamines Scrn (Negative) Ur MDMA Scrn (Ecstasy) (Negative) U Benzodiazepines Scrn (Negative) Urine Cocaine Screen (Negative) U Marijuana (THC) Screen (Negative) Ethyl Alcohol ( - 10) mg/dL SARS-CoV-2 (PCR) Negative (Negative) Point of Care Testing Test Results Negative Urine Dip Bedside Urine Bilirubin - Negative Bedside Urine Ketone - Negative Urine Specific [place] 1.010 Bedside Urine Occult Blood - Negative Bedside Urine pH 6 Bedside Urine Protein - Negative Bedside Urine Urobilinogen - Negative Bedside Urine Nitrite - Negative Bedside Urine Leukocytes - Negative Esterase MDM Narrative Medical decision making narrative: 21-year-old individual with increasing anxiety, some struggle with gender identity currently wearing a breast binder and states that prefers not to use she her pronouns. Concerned that no active some complaints. Concerned with his inappropriate emotional response to his bedroom at home being completely cleaned out and feeling that he is out of control. He believes that inpatient care to help with his worsening overall mental health would be most appropriate. He is cooperative and agrees to all workup that will be required and understands that social secretary will likely not be available till noon. I suggested a mg of Ativan to simply help him settle a bit and he was agreeable Care is signed out to Dr. Woods at change of shift in anticipation of social work evaluation <Gary Woods, DO - Last Filed: 12/09/21 19:30> Lab Data Labs: Lab Results 12/09/21 12/09/21 12/09/21 Range/Units 04:30 05:02 05:08 WBC 13.8 H (4.5-11.0) X10^3/uL RBC 4.24 (4.0-5.2) X10^6/uL Hgb 12.6 (12.0-16.0) g/dL Hct 36.4 (36-46) % MCV 85.8 (80-100) fL MCH 29.7 (26-34) PG MCHC 34.6 (30-36) % RDW 13.3 (11.6-14.8) % Plt Count 255 (150-400) X10^3/uL Neut % (Auto) 68.3 (50-75) % Lymph % (Auto) 20.0 L (25-40) % [place] % (Auto) 10.3 (3-14) % Eos % (Auto) 0.8 L (2-4) % Baso % (Auto) 0.6 (0-2) % Neut # (Auto) 9400 H (1356-6991) /uL Lymph # (Auto) 2800 (3083-9365) /uL [place] # (Auto) 1400 H (0-900) /uL Eos # (Auto) 100 (0-450) /uL Baso # (Auto) 100 (0-100) /uL Sodium (137-145) mmol/L Potassium (3.4-5.1) mmol/L Chloride (98-107) mmol/L Carbon Dioxide (22-32) mmol/L BUN (7-17) mg/dL Creatinine (0.52-1.04) mg/dL Estimated GFR (>60) mL/min BUN/Creatinine Ratio (6-22) Glucose (70-100) mg/dL Calcium (8.4-10.2) mg/dL Total Bilirubin (0.2-1.3) mg/dL AST (14-36) IU/L ALT (<35) IU/L Alkaline Phosphatase (38-126) U/L Total Protein (6.3-8.2) g/dL Albumin (3.5-5.0) g/dL Globulin (1.7-4.1) g/dL Albumin/Globulin Ratio (1.0-2.8) TSH (0.47-4.68) uIU/mL U Opiates 300ng/mL cut Negative (Negative) Ur Oxycodone Screen Negative (Negative) Urine Methadone Screen Negative (Negative) Ur Barbiturates Screen Negative (Negative) U Tricyclic Antidepress Negative (Negative) Ur Phencyclidine Scrn Negative (Negative) Ur Amphetamines Screen Negative (Negative) U Methamphetamines Scrn Negative (Negative) Ur MDMA Scrn (Ecstasy) Negative (Negative) U Benzodiazepines Scrn Negative (Negative) Urine Cocaine Screen Negative (Negative) U Marijuana (THC) Screen Positive H (Negative) Ethyl Alcohol ( - 10) mg/dL SARS-CoV-2 (PCR) Positive H (Negative) 12/09/21 12/09/21 12/09/21 Range/Units 05:08 05:08 05:08 WBC (4.5-11.0) X10^3/uL RBC (4.0-5.2) X10^6/uL Hgb (12.0-16.0) g/dL Hct (36-46) % MCV (80-100) fL MCH (26-34) PG MCHC (30-36) % RDW (11.6-14.8) % Plt Count (150-400) X10^3/uL Neut % (Auto) (50-75) % Lymph % (Auto) (25-40) % [place] % (Auto) (3-14) % Eos % (Auto) (2-4) % Baso % (Auto) (0-2) % Neut # (Auto) (2348-1732) /uL Lymph # (Auto) (3893-5489) /uL [place] # (Auto) (0-900) /uL Eos # (Auto) (0-450) /uL Baso # (Auto) (0-100) /uL Sodium 141 (137-145) mmol/L Potassium 3.5 (3.4-5.1) mmol/L Chloride 105 (98-107) mmol/L Carbon Dioxide 25 (22-32) mmol/L BUN 7 (7-17) mg/dL Creatinine 0.64 (0.52-1.04) mg/dL Estimated GFR > 60 (>60) mL/min BUN/Creatinine Ratio 10.9 (6-22) Glucose 89 (70-100) mg/dL Calcium 9.0 (8.4-10.2) mg/dL Total Bilirubin 0.8 (0.2-1.3) mg/dL AST 26 (14-36) IU/L ALT 17 (<35) IU/L Alkaline Phosphatase 62 (38-126) U/L Total Protein 7.8 (6.3-8.2) g/dL Albumin 4.4 (3.5-5.0) g/dL Globulin 3.4 (1.7-4.1) g/dL Albumin/Globulin Ratio 1.3 (1.0-2.8) TSH 2.15 (0.47-4.68) uIU/mL U Opiates 300ng/mL cut (Negative) Ur Oxycodone Screen (Negative) Urine Methadone Screen (Negative) Ur Barbiturates Screen (Negative) U Tricyclic Antidepress (Negative) Ur Phencyclidine Scrn (Negative) Ur Amphetamines Screen (Negative) U Methamphetamines Scrn (Negative) Ur MDMA Scrn (Ecstasy) (Negative) U Benzodiazepines Scrn (Negative) Urine Cocaine Screen (Negative) U Marijuana (THC) Screen (Negative) Ethyl Alcohol < 10 ( - 10) mg/dL SARS-CoV-2 (PCR) (Negative) 12/10/21 Range/Units 13:47 WBC (4.5-11.0) X10^3/uL RBC (4.0-5.2) X10^6/uL Hgb (12.0-16.0) g/dL Hct (36-46) % MCV (80-100) fL MCH (26-34) PG MCHC (30-36) % RDW (11.6-14.8) % Plt Count (150-400) X10^3/uL Neut % (Auto) (50-75) % Lymph % (Auto) (25-40) % [place] % (Auto) (3-14) % Eos % (Auto) (2-4) % Baso % (Auto) (0-2) % Neut # (Auto) (3160-3752) /uL Lymph # (Auto) (5556-4323) /uL [place] # (Auto) (0-900) /uL Eos # (Auto) (0-450) /uL Baso # (Auto) (0-100) /uL Sodium (137-145) mmol/L Potassium (3.4-5.1) mmol/L Chloride (98-107) mmol/L Carbon Dioxide (22-32) mmol/L BUN (7-17) mg/dL Creatinine (0.52-1.04) mg/dL Estimated GFR (>60) mL/min BUN/Creatinine Ratio (6-22) Glucose (70-100) mg/dL Calcium (8.4-10.2) mg/dL Total Bilirubin (0.2-1.3) mg/dL AST (14-36) IU/L ALT (<35) IU/L Alkaline Phosphatase (38-126) U/L Total Protein (6.3-8.2) g/dL Albumin (3.5-5.0) g/dL Globulin (1.7-4.1) g/dL Albumin/Globulin Ratio (1.0-2.8) TSH (0.47-4.68) uIU/mL U Opiates 300ng/mL cut (Negative) Ur Oxycodone Screen (Negative) Urine Methadone Screen (Negative) Ur Barbiturates Screen (Negative) U Tricyclic Antidepress (Negative) Ur Phencyclidine Scrn (Negative) Ur Amphetamines Screen (Negative) U Methamphetamines Scrn (Negative) Ur MDMA Scrn (Ecstasy) (Negative) U Benzodiazepines Scrn (Negative) Urine Cocaine Screen (Negative) U Marijuana (THC) Screen (Negative) Ethyl Alcohol ( - 10) mg/dL SARS-CoV-2 (PCR) Negative (Negative) Point of Care Testing Test Results Negative Urine Dip Bedside Urine Bilirubin - Negative Bedside Urine Ketone - Negative Urine Specific [place] 1.010 Bedside Urine Occult Blood - Negative Bedside Urine pH 6 Bedside Urine Protein - Negative Bedside Urine Urobilinogen - Negative Bedside Urine Nitrite - Negative Bedside Urine Leukocytes - Negative Esterase MDM Narrative Medical decision making narrative: 21-year-old individual with increasing anxiety, some struggle with gender identity currently wearing a breast binder and states that prefers not to use she her pronouns. Concerned that no active some complaints. Concerned with his inappropriate emotional response to his bedroom at home being completely cleaned out and feeling that he is out of control. He believes that inpatient care to help with his worsening overall mental health would be most appropriate. He is cooperative and agrees to all workup that will be required and understands that social secretary will likely not be available till noon. I suggested a mg of Ativan to simply help him settle a bit and he was agreeable Care is signed out to Dr. Woods at change of shift in anticipation of social work evaluation Dr woods: Received turned over. The patient's history and physical exam. Patient remains medically cleared. Has been seen by social work. No placement was established for today. Will re-evaluate tomorrow. Care turned over to Dr. Morrissey to follow-up and disposition. <Danay Morrissey, DO - Last Filed: 12/11/21 00:42> Lab Data Labs: Lab Results 12/09/21 12/09/21 12/09/21 Range/Units 04:30 05:02 05:08 WBC 13.8 H (4.5-11.0) X10^3/uL RBC 4.24 (4.0-5.2) X10^6/uL Hgb 12.6 (12.0-16.0) g/dL Hct 36.4 (36-46) % MCV 85.8 (80-100) fL MCH 29.7 (26-34) PG MCHC 34.6 (30-36) % RDW 13.3 (11.6-14.8) % Plt Count 255 (150-400) X10^3/uL Neut % (Auto) 68.3 (50-75) % Lymph % (Auto) 20.0 L (25-40) % [place] % (Auto) 10.3 (3-14) % Eos % (Auto) 0.8 L (2-4) % Baso % (Auto) 0.6 (0-2) % Neut # (Auto) 9400 H (6029-3247) /uL Lymph # (Auto) 2800 (8911-6899) /uL [place] # (Auto) 1400 H (0-900) /uL Eos # (Auto) 100 (0-450) /uL Baso # (Auto) 100 (0-100) /uL Sodium (137-145) mmol/L Potassium (3.4-5.1) mmol/L Chloride (98-107) mmol/L Carbon Dioxide (22-32) mmol/L BUN (7-17) mg/dL Creatinine (0.52-1.04) mg/dL Estimated GFR (>60) mL/min BUN/Creatinine Ratio (6-22) Glucose (70-100) mg/dL Calcium (8.4-10.2) mg/dL Total Bilirubin (0.2-1.3) mg/dL AST (14-36) IU/L ALT (<35) IU/L Alkaline Phosphatase (38-126) U/L Total Protein (6.3-8.2) g/dL Albumin (3.5-5.0) g/dL Globulin (1.7-4.1) g/dL Albumin/Globulin Ratio (1.0-2.8) TSH (0.47-4.68) uIU/mL U Opiates 300ng/mL cut Negative (Negative) Ur Oxycodone Screen Negative (Negative) Urine Methadone Screen Negative (Negative) Ur Barbiturates Screen Negative (Negative) U Tricyclic Antidepress Negative (Negative) Ur Phencyclidine Scrn Negative (Negative) Ur Amphetamines Screen Negative (Negative) U Methamphetamines Scrn Negative (Negative) Ur MDMA Scrn (Ecstasy) Negative (Negative) U Benzodiazepines Scrn Negative (Negative) Urine Cocaine Screen Negative (Negative) U Marijuana (THC) Screen Positive H (Negative) Ethyl Alcohol ( - 10) mg/dL SARS-CoV-2 (PCR) Positive H (Negative) 12/09/21 12/09/21 12/09/21 Range/Units 05:08 05:08 05:08 WBC (4.5-11.0) X10^3/uL RBC (4.0-5.2) X10^6/uL Hgb (12.0-16.0) g/dL Hct (36-46) % MCV (80-100) fL MCH (26-34) PG MCHC (30-36) % RDW (11.6-14.8) % Plt Count (150-400) X10^3/uL Neut % (Auto) (50-75) % Lymph % (Auto) (25-40) % [place] % (Auto) (3-14) % Eos % (Auto) (2-4) % Baso % (Auto) (0-2) % Neut # (Auto) (5974-0427) /uL Lymph # (Auto) (1000-5965) /uL [place] # (Auto) (0-900) /uL Eos # (Auto) (0-450) /uL Baso # (Auto) (0-100) /uL Sodium 141 (137-145) mmol/L Potassium 3.5 (3.4-5.1) mmol/L Chloride 105 (98-107) mmol/L Carbon Dioxide 25 (22-32) mmol/L BUN 7 (7-17) mg/dL Creatinine 0.64 (0.52-1.04) mg/dL Estimated GFR > 60 (>60) mL/min BUN/Creatinine Ratio 10.9 (6-22) Glucose 89 (70-100) mg/dL Calcium 9.0 (8.4-10.2) mg/dL Total Bilirubin 0.8 (0.2-1.3) mg/dL AST 26 (14-36) IU/L ALT 17 (<35) IU/L Alkaline Phosphatase 62 (38-126) U/L Total Protein 7.8 (6.3-8.2) g/dL Albumin 4.4 (3.5-5.0) g/dL Globulin 3.4 (1.7-4.1) g/dL Albumin/Globulin Ratio 1.3 (1.0-2.8) TSH 2.15 (0.47-4.68) uIU/mL U Opiates 300ng/mL cut (Negative) Ur Oxycodone Screen (Negative) Urine Methadone Screen (Negative) Ur Barbiturates Screen (Negative) U Tricyclic Antidepress (Negative) Ur Phencyclidine Scrn (Negative) Ur Amphetamines Screen (Negative) U Methamphetamines Scrn (Negative) Ur MDMA Scrn (Ecstasy) (Negative) U Benzodiazepines Scrn (Negative) Urine Cocaine Screen (Negative) U Marijuana (THC) Screen (Negative) Ethyl Alcohol < 10 ( - 10) mg/dL SARS-CoV-2 (PCR) (Negative) 12/10/21 Range/Units 13:47 WBC (4.5-11.0) X10^3/uL RBC (4.0-5.2) X10^6/uL Hgb (12.0-16.0) g/dL Hct (36-46) % MCV (80-100) fL MCH (26-34) PG MCHC (30-36) % RDW (11.6-14.8) % Plt Count (150-400) X10^3/uL Neut % (Auto) (50-75) % Lymph % (Auto) (25-40) % [place] % (Auto) (3-14) % Eos % (Auto) (2-4) % Baso % (Auto) (0-2) % Neut # (Auto) (1417-0829) /uL Lymph # (Auto) (9551-2955) /uL [place] # (Auto) (0-900) /uL Eos # (Auto) (0-450) /uL Baso # (Auto) (0-100) /uL Sodium (137-145) mmol/L Potassium (3.4-5.1) mmol/L Chloride (98-107) mmol/L Carbon Dioxide (22-32) mmol/L BUN (7-17) mg/dL Creatinine (0.52-1.04) mg/dL Estimated GFR (>60) mL/min BUN/Creatinine Ratio (6-22) Glucose (70-100) mg/dL Calcium (8.4-10.2) mg/dL Total Bilirubin (0.2-1.3) mg/dL AST (14-36) IU/L ALT (<35) IU/L Alkaline Phosphatase (38-126) U/L Total Protein (6.3-8.2) g/dL Albumin (3.5-5.0) g/dL Globulin (1.7-4.1) g/dL Albumin/Globulin Ratio (1.0-2.8) TSH (0.47-4.68) uIU/mL U Opiates 300ng/mL cut (Negative) Ur Oxycodone Screen (Negative) Urine Methadone Screen (Negative) Ur Barbiturates Screen (Negative) U Tricyclic Antidepress (Negative) Ur Phencyclidine Scrn (Negative) Ur Amphetamines Screen (Negative) U Methamphetamines Scrn (Negative) Ur MDMA Scrn (Ecstasy) (Negative) U Benzodiazepines Scrn (Negative) Urine Cocaine Screen (Negative) U Marijuana (THC) Screen (Negative) Ethyl Alcohol ( - 10) mg/dL SARS-CoV-2 (PCR) Negative (Negative) Point of Care Testing Test Results Negative Urine Dip Bedside Urine Bilirubin - Negative Bedside Urine Ketone - Negative Urine Specific [place] 1.010 Bedside Urine Occult Blood - Negative Bedside Urine pH 6 Bedside Urine Protein - Negative Bedside Urine Urobilinogen - Negative Bedside Urine Nitrite - Negative Bedside Urine Leukocytes - Negative Esterase MDM Narrative Medical decision making narrative: 21-year-old individual with increasing anxiety, some struggle with gender identity currently wearing a breast binder and states that prefers not to use she her pronouns. Concerned that no active some complaints. Concerned with his inappropriate emotional response to his bedroom at home being completely cleaned out and feeling that he is out of control. He believes that inpatient care to help with his worsening overall mental health would be most appropriate. He is cooperative and agrees to all workup that will be required and understands that social secretary will likely not be available till noon. I suggested a mg of Ativan to simply help him settle a bit and he was agreeable Care is signed out to Dr. Woods at change of shift in anticipation of social work evaluation Dr woods: Received turned over. The patient's history and physical exam. Patient remains medically cleared. Has been seen by social work. No placement was established for today. Will re-evaluate tomorrow. Care turned over to Dr. Morrissey to follow-up and disposition. Yuni-patient signed out to me by Dr. Woods no events overnight patient slept remains voluntary. Unable to find bed yesterday social work to re-evaluate today signed out to Dr. Busby <Cheli Busby DO - Last Filed: 12/10/21 20:04> Lab Data Labs: Lab Results 12/09/21 12/09/21 12/09/21 Range/Units 04:30 05:02 05:08 WBC 13.8 H (4.5-11.0) X10^3/uL RBC 4.24 (4.0-5.2) X10^6/uL Hgb 12.6 (12.0-16.0) g/dL Hct 36.4 (36-46) % MCV 85.8 (80-100) fL MCH 29.7 (26-34) PG MCHC 34.6 (30-36) % RDW 13.3 (11.6-14.8) % Plt Count 255 (150-400) X10^3/uL Neut % (Auto) 68.3 (50-75) % Lymph % (Auto) 20.0 L (25-40) % [place] % (Auto) 10.3 (3-14) % Eos % (Auto) 0.8 L (2-4) % Baso % (Auto) 0.6 (0-2) % Neut # (Auto) 9400 H (4340-2236) /uL Lymph # (Auto) 2800 (9139-9770) /uL [place] # (Auto) 1400 H (0-900) /uL Eos # (Auto) 100 (0-450) /uL Baso # (Auto) 100 (0-100) /uL Sodium (137-145) mmol/L Potassium (3.4-5.1) mmol/L Chloride (98-107) mmol/L Carbon Dioxide (22-32) mmol/L BUN (7-17) mg/dL Creatinine (0.52-1.04) mg/dL Estimated GFR (>60) mL/min BUN/Creatinine Ratio (6-22) Glucose (70-100) mg/dL Calcium (8.4-10.2) mg/dL Total Bilirubin (0.2-1.3) mg/dL AST (14-36) IU/L ALT (<35) IU/L Alkaline Phosphatase (38-126) U/L Total Protein (6.3-8.2) g/dL Albumin (3.5-5.0) g/dL Globulin (1.7-4.1) g/dL Albumin/Globulin Ratio (1.0-2.8) TSH (0.47-4.68) uIU/mL U Opiates 300ng/mL cut Negative (Negative) Ur Oxycodone Screen Negative (Negative) Urine Methadone Screen Negative (Negative) Ur Barbiturates Screen Negative (Negative) U Tricyclic Antidepress Negative (Negative) Ur Phencyclidine Scrn Negative (Negative) Ur Amphetamines Screen Negative (Negative) U Methamphetamines Scrn Negative (Negative) Ur MDMA Scrn (Ecstasy) Negative (Negative) U Benzodiazepines Scrn Negative (Negative) Urine Cocaine Screen Negative (Negative) U Marijuana (THC) Screen Positive H (Negative) Ethyl Alcohol ( - 10) mg/dL SARS-CoV-2 (PCR) Positive H (Negative) 12/09/21 12/09/21 12/09/21 Range/Units 05:08 05:08 05:08 WBC (4.5-11.0) X10^3/uL RBC (4.0-5.2) X10^6/uL Hgb (12.0-16.0) g/dL Hct (36-46) % MCV (80-100) fL MCH (26-34) PG MCHC (30-36) % RDW (11.6-14.8) % Plt Count (150-400) X10^3/uL Neut % (Auto) (50-75) % Lymph % (Auto) (25-40) % [place] % (Auto) (3-14) % Eos % (Auto) (2-4) % Baso % (Auto) (0-2) % Neut # (Auto) (3877-3617) /uL Lymph # (Auto) (9373-2385) /uL [place] # (Auto) (0-900) /uL Eos # (Auto) (0-450) /uL Baso # (Auto) (0-100) /uL Sodium 141 (137-145) mmol/L Potassium 3.5 (3.4-5.1) mmol/L Chloride 105 (98-107) mmol/L Carbon Dioxide 25 (22-32) mmol/L BUN 7 (7-17) mg/dL Creatinine 0.64 (0.52-1.04) mg/dL Estimated GFR > 60 (>60) mL/min BUN/Creatinine Ratio 10.9 (6-22) Glucose 89 (70-100) mg/dL Calcium 9.0 (8.4-10.2) mg/dL Total Bilirubin 0.8 (0.2-1.3) mg/dL AST 26 (14-36) IU/L ALT 17 (<35) IU/L Alkaline Phosphatase 62 (38-126) U/L Total Protein 7.8 (6.3-8.2) g/dL Albumin 4.4 (3.5-5.0) g/dL Globulin 3.4 (1.7-4.1) g/dL Albumin/Globulin Ratio 1.3 (1.0-2.8) TSH 2.15 (0.47-4.68) uIU/mL U Opiates 300ng/mL cut (Negative) Ur Oxycodone Screen (Negative) Urine Methadone Screen (Negative) Ur Barbiturates Screen (Negative) U Tricyclic Antidepress (Negative) Ur Phencyclidine Scrn (Negative) Ur Amphetamines Screen (Negative) U Methamphetamines Scrn (Negative) Ur MDMA Scrn (Ecstasy) (Negative) U Benzodiazepines Scrn (Negative) Urine Cocaine Screen (Negative) U Marijuana (THC) Screen (Negative) Ethyl Alcohol < 10 ( - 10) mg/dL SARS-CoV-2 (PCR) (Negative) 12/10/21 Range/Units 13:47 WBC (4.5-11.0) X10^3/uL RBC (4.0-5.2) X10^6/uL Hgb (12.0-16.0) g/dL Hct (36-46) % MCV (80-100) fL MCH (26-34) PG MCHC (30-36) % RDW (11.6-14.8) % Plt Count (150-400) X10^3/uL Neut % (Auto) (50-75) % Lymph % (Auto) (25-40) % [place] % (Auto) (3-14) % Eos % (Auto) (2-4) % Baso % (Auto) (0-2) % Neut # (Auto) (8181-6817) /uL Lymph # (Auto) (7599-6138) /uL [place] # (Auto) (0-900) /uL Eos # (Auto) (0-450) /uL Baso # (Auto) (0-100) /uL Sodium (137-145) mmol/L Potassium (3.4-5.1) mmol/L Chloride (98-107) mmol/L Carbon Dioxide (22-32) mmol/L BUN (7-17) mg/dL Creatinine (0.52-1.04) mg/dL Estimated GFR (>60) mL/min BUN/Creatinine Ratio (6-22) Glucose (70-100) mg/dL Calcium (8.4-10.2) mg/dL Total Bilirubin (0.2-1.3) mg/dL AST (14-36) IU/L ALT (<35) IU/L Alkaline Phosphatase (38-126) U/L Total Protein (6.3-8.2) g/dL Albumin (3.5-5.0) g/dL Globulin (1.7-4.1) g/dL Albumin/Globulin Ratio (1.0-2.8) TSH (0.47-4.68) uIU/mL U Opiates 300ng/mL cut (Negative) Ur Oxycodone Screen (Negative) Urine Methadone Screen (Negative) Ur Barbiturates Screen (Negative) U Tricyclic Antidepress (Negative) Ur Phencyclidine Scrn (Negative) Ur Amphetamines Screen (Negative) U Methamphetamines Scrn (Negative) Ur MDMA Scrn (Ecstasy) (Negative) U Benzodiazepines Scrn (Negative) Urine Cocaine Screen (Negative) U Marijuana (THC) Screen (Negative) Ethyl Alcohol ( - 10) mg/dL SARS-CoV-2 (PCR) Negative (Negative) Point of Care Testing Test Results Negative Urine Dip Bedside Urine Bilirubin - Negative Bedside Urine Ketone - Negative Urine Specific [place] 1.010 Bedside Urine Occult Blood - Negative Bedside Urine pH 6 Bedside Urine Protein - Negative Bedside Urine Urobilinogen - Negative Bedside Urine Nitrite - Negative Bedside Urine Leukocytes - Negative Esterase MDM Narrative Medical decision making narrative: 21-year-old individual with increasing anxiety, some struggle with gender identity currently wearing a breast binder and states that prefers not to use she her pronouns. Concerned that no active some complaints. Concerned with his inappropriate emotional response to his bedroom at home being completely cleaned out and feeling that he is out of control. He believes that inpatient care to help with his worsening overall mental health would be most appropriate. He is cooperative and agrees to all workup that will be required and understands that social secretary will likely not be available till noon. I suggested a mg of Ativan to simply help him settle a bit and he was agreeable Care is signed out to Dr. Woods at change of shift in anticipation of social work evaluation Dr woods: Received turned over. The patient's history and physical exam. Patient remains medically cleared. Has been seen by social work. No placement was established for today. Will re-evaluate tomorrow. Care turned over to Dr. Morrissey to follow-up and disposition. Yuni-patient signed out to me by Dr. Woods no events overnight patient slept remains voluntary. Unable to find bed yesterday social work to re-evaluate today signed out to Dr. Busby. 12/10/21 Syedk: Patient signed out to myself this morning by Dr. Morrissey. Patient was able to find voluntary placement. Facility asked for repeat COVID swab which repeat is negative. And patient is transferring to [facility]. Accepting provider is Dr. Tiffany LA at [facility]. Discharge Plan Departure Patient Disposition: [facility] Clinical Impression: Suicidal ideation Prescriptions: No Action control PO Vitamin D PO metoclopramide HCl 10 mg tablet,disintegrating 10 mg PO Q6H PRN (Reason: nausea and vomiting) Qty: 10 0RF Referrals: Alee Ritter MD [Primary Care Provider] -
[2021-12-09] MEDS: LORazepam 0.5 MG TABLET 1 MG PO (05:03)
[2021-12-09 05:15] LABS: UR Morphine/Opiate cutoff 300 Negative (Negative); Ur Creatinine 20 (Normal); Ur Specific Gravity 1.015 (Normal); Urine Amphetamines Negative (Negative); Urine Barbiturates Negative (Negative); Urine Benzodiazepines Negative (Negative); Urine Cocaine Negative (Negative); Urine MDMA Negative (Negative); Urine Methadone Negative (Negative); Urine Methamphetamines Negative (Negative); Urine Oxycodone Negative (Negative); Urine Phencyclidine Negative (Negative); Urine Tetrahydrocannabinol Positive (Negative); Urine Tricyclic Antidepressant Negative (Negative); Urine pH 5 (Normal)
[2021-12-09 05:29] LABS: Add Manual Diff / Slide Review NO; Basophils Absolute Auto 100 /uL (0-100); Basophils Percent Auto 0.6 % (0-2); Eosinophils Absolute Auto 100 /uL (0-450); Eosinophils Percent Auto 0.8 % (2-4); Hematocrit 36.4 % (36-46); Hemoglobin 12.6 g/dL (12.0-16.0); Lymphocytes Absolute Auto 2800 /uL (1100-4500); Mean Corpuscular HGB Conc 34.6 % (30-36); Mean Corpuscular Hemoglobin 29.7 PG (26-34); Mean Corpuscular Volume 85.8 fL (80-100); Monocytes Absolute Auto 1400 /uL (0-900); Monocytes Percent Auto 10.3 % (3-14); Neutrophils Absolute Auto 9400 /uL (1500-7000); Neutrophils Percent Auto 68.3 % (50-75); Platelet Count 255 X10^3/uL (150-400); Red Blood Cell Count 4.24 X10^6/uL (4.0-5.2); Red Cell Distribution Width 13.3 % (11.6-14.8); White Blood Cell Count 13.8 X10^3/uL (4.5-11.0)
[2021-12-09 05:45] LABS: Alanine Aminotransferase 17 IU/L (<35); Albumin 4.4 g/dL (3.5-5.0); Albumin Globulin Ratio 1.3 (1.0-2.8); Alkaline Phosphatase 62 U/L (38-126); Aspartate Aminotransferase 26 IU/L (14-36); BUN Creatinine Ratio 10.9 (6-22); Bilirubin Total 0.8 mg/dL (0.2-1.3); Blood Urea Nitrogen 7 mg/dL (7-17); Carbon Dioxide 25 mmol/L (22-32); Chloride 105 mmol/L (98-107); Estimated Glomerular Filt Rate > 60 mL/min (>60); Globulin 3.4 g/dL (1.7-4.1); Glucose 89 mg/dL (70-100); HEMOLYSIS < 15 (0-50); Potassium 3.5 mmol/L (3.4-5.1); Sodium 141 mmol/L (137-145); Total Protein 7.8 g/dL (6.3-8.2)
[2021-12-09 05:47] LABS: Ethanol (ETOH) < 10 mg/dL
[2021-12-09 06:02] LABS: COVID19 -Nasal RAPID POSITIVE (Negative)
[2021-12-09 06:20] LABS: Thyroid Stimulating Hormone 2.15 uIU/mL (0.47-4.68)
[2021-12-09 11:12] VITALS: BP 107/56; PULSE 69; RESP 16; TEMP 36.8; O2SAT 98
--- NOTE | 2021-12-09 11:13 | PC.NURSE ---
PT has food at bedside. Pt has no requests for needs at this time. Pt was asleep, easily wakes to voice.
[2021-12-09 14:08] VITALS: PULSE 69; O2SAT 97
[2021-12-09 14:09] VITALS: BP 104/55; O2SAT 96
--- NOTE | 2021-12-09 14:35 | CM.SWNOTE ---
NSH TEACHER Assessment NSH TEACHER - Dyehouse Worker Assessment NSH TEACHER/Dyehouse Worker Assessment Time Spent with Patient Start date 12/09/21 Visit Start Time 13:20 End date 12/09/21 Visit End Time 14:00 Total time Care Management spent on 40 minutes patient visit-in minutes Mental Health Screening Include Onset, Duration, Intensity Presenting Problem Patient presents to ED due to concern for severe decline in mental health in the last few months. Patient endorses concern with ability to manage the cleanliness of room and garbage and recycling piling up. Patient endorses recent self harm and vague SI with plans. Precipitating Event(s) Patient endorses that family members have been threatening to remove everything in patient's room and patient endorses that last night things that were bottled up came out. Patient endorses from 1:30 am last night patient was inconsolably laughing until they came to the ED at approximately 4am, patient endorses having to console self in car prior to coming in. Patient endorses concern with their ability to follow through with anything due to lack of motivation, frustration with self and increase in depression. Patient presented to ED in June 2021 with similar symptoms. Patient Strengths Patient has therapist and plans to get a psychiatrist. Patient is seeking help. Current Behavioral Health Provider(s) Patient sees therapist Geovanna Blackman Facility, Provider, Ph. # at [facility] (Ph. # ) weekly . Patient endorses that they had an appt today but had to cancel due to ED visit. Patient endorses they are trying to get back in to see Psychiatrist Dr. Alexey Steele at [facility] . Psych. Hx Mental Health and Chemical Patient has hx of Depression, Dependency Anxiety, OCD, self harm and SI . Patient struggles with eating due to textures and lack of hunger cues because food is not appealing. Patient denies eating disorder because they want to be healthy and maintain a healthy weight. Patient endorses rare ETOH use and regular Marijuana use for insomnia and panic attacks. Patient denies other substance use. Family Hx of Behavioral Abuse None reported Psychiatric Hospitalizations (date(s)/ No hx location) Psychosocial information & Support Patient is 21 y/o transgender Systems male (assigned female at ). Patient prefers He/Him/His or they/them/theirs pronouns. Patient resides with 16 y/o sister and mother in [place] part of the time and stays with father in [place], [place] almost weekly. Patient endorses therapist and friends as supports. School/Work Unemployed currently Legal Concerns Legal Matters - Outstanding Issues None reported Mental Status Orientation (Person/Place/Time) A/Ox4 Stated Mood tired Affect (Congruent with Mood?) euthymic/flat, congruent with mood Thought Content - Specify/Describe Patient denies visual or Obsessions, Delusions, Hallucinations auditory hallucinations. Thought Processes (Elcnbkz-Fbxktsig-Exsf coherent Idkfvano-Ilnipgos-Psqhkasexe- Ooginuzaensbpk-Wkdnemm-Cpnwulafzjno- Thought Blocking) Speech (Pvmosw-Ztbl-Lkhctpi-Rapid-Soft- normal/soft Loud-Pressured) Motor (Tbsqbt-Smlpgvbzt-Krvg-Other) normal, not formally assessed Insight (Zupl-Uldy-Ycyp/Limited) fair Judgement (Qtoi-Xzob-Drfs/Limited) fair/limited Impulse Control (Adequate-Impaired) intact Memory (Omjmducrl-Lrvqjj-Wdkjfq, intact, not formally assessed Impaired-Intact) Concentration (Intact-Impaired) intact Attention (Intact-Impaired) intact Behavior (Appropriate-Inappropriate) appropriate Additional Comment Patient presents as calm, communicative and cooperative. Risk Assessment Suicidal Ideation (Plan) Yes Homicidal Ideation (Plan) No Comment Patient denies HI and denies any hx of violence towards others. Patient endorses hx of SI and self harm. Patient endorses last night they banged their head against the wall and fairly often harm self in such way. Patient endorses hx of self harm by cutting when 14-15 y/o. Patient endorses SI, states thoughts of vague plans nothing concrete to follow patient endorses would never go through with it. Patient endorses impulsive thoughts that develop and patient has to try to shut thoughts down . Intervention Intervention NSH TEACHER enters room to meet with patient. Patient endorses concern for decline in MH. Patient endorses concern for lack of motivation to complete daily activities, lack of follow through and increase in SI and self harm. Patient endorses they have a therapist and have been trying to set up with a psychiatrist at the same agency with a completed intake packet but has not yet turned it in after several days. Patient endorses concern with safety at home due to harm towards self. Patient endorses that they do not tell anyone before or after patient engages in self harm or when patient has SI. Patient endorses they do not want to be a burden to their friends. Patient endorses difficulty sleeping and eating in the last few days due to increase in depression. Patient endorses interest in voluntary inpatient hospitalization. NSH TEACHER discusses following rules and guidelines and patient agrees to follow rules and try to eat food when given. Patient tests positive for covid in ED on 12/09/21. NSH TEACHER asks patient about this and they stated that they were sick a week and a half ago and tested positive for covid on 11/27/21. Patient presents without symptoms today. It is the opinion of this NSH TEACHER that patient would benefit from and be appropriate for voluntary inpatient hospitalization for safety, crisis stabilization and medication management. NSH TEACHER reviews the above with ED provider Dr. Woods who indicates agreement and understanding. Plan RA Plan NSH TEACHER to seek voluntary bed for patient upon medical clearance. Sherlyn Zavala, BIODIESEL PROCESSING TECHNICIAN
--- NOTE | 2021-12-09 17:30 | CM.SWNOTE ---
Addendum entered by Sherlyn Zavala 12/09/21 18:25: HUMAN SERVICES ASSISTANT Note HUMAN SERVICES ASSISTANT discusses the barriers in finding inpatient placement for patient, patient endorses preference to stay in ED as patient feels safer and less overwhelmed in ED and would like to continue to find placement. HUMAN SERVICES ASSISTANT receives return call from [facility] intake, and it is reported that patient is declined due to patient's vague SI with unclear information on SI plan. HUMAN SERVICES ASSISTANT discusses patient's grave disability and inability to manage daily activities and it is reported that patient is still declined. [facility] and [facility] may have beds tomorrow, HUMAN SERVICES ASSISTANT to inform ED team to reach out to hospitals in AM. Plan: HUMAN SERVICES ASSISTANT to meet with patient further discuss alternative plan for discharge. SAMSON Gay Original Note: HUMAN SERVICES ASSISTANT Note HUMAN SERVICES ASSISTANT calls [facility] for bed census. HUMAN SERVICES ASSISTANT calls [facility] intake, it is reported that they can take covid+ patients but there are no beds available for patient due to specific room needs for transgender male. HUMAN SERVICES ASSISTANT calls [facility], it is reported they can accept patient's that are Covid+ asymptomatic after 10 days, it is reported that they need proof of patient's initial positive covid test. Patient reports they do not have proof, it is reported that [facility] cannot review patient. [facility] flier received it is reported that they do not accept Covid + patients. HUMAN SERVICES ASSISTANT calls [facility] and leaves requesting return call. HUMAN SERVICES ASSISTANT calls [facility] intake, it is reported that they do not have beds for patient's specific room needs for transgender male. HUMAN SERVICES ASSISTANT calls [facility] and it is reported that there are no beds. HUMAN SERVICES ASSISTANT calls [facility] and leaves requesting return call. HUMAN SERVICES ASSISTANT calls [facility] and it is reported that they have beds and can review patient, HUMAN SERVICES ASSISTANT faxes clinicals for review. RN discusses nutrition with patient and patient eats lunch as provided. Plan: HUMAN SERVICES ASSISTANT to continue to seek voluntary bed for patient and discuss safety plan as needed due to lack of placement. SAMSON Gay
[2021-12-10] VITALS (10 sets, daily range): BP systolic 94–115; BP diastolic 55–70; PULSE 74–97; RESP 18; TEMP 37.1; O2SAT 98–100
--- NOTE | 2021-12-10 01:20 | PC.NURSE ---
Report received - assumed care of pt at this time
--- NOTE | 2021-12-10 02:15 | PC.NURSE ---
Resting quietly in NAD in darkened room - no needs voiced - awaiting placement - calm and cooperative
--- NOTE | 2021-12-10 03:00 | PC.NURSE ---
No changes in pt status at this time
--- NOTE | 2021-12-10 03:45 | PC.NURSE ---
Continues to rest quietly in NAD - no needs voiced at this time - respirations equal and unlabored bilaterally
--- NOTE | 2021-12-10 04:15 | PC.NURSE ---
No changes in pt status at this time
--- NOTE | 2021-12-10 05:00 | PC.NURSE ---
No changes in pt status at this time
--- NOTE | 2021-12-10 05:45 | PC.NURSE ---
Continues to rest easily - respirations equal and unlabored bilaterally - PWD - NAD
--- NOTE | 2021-12-10 07:26 | PC.NURSE ---
Report to dayshift RN team - care relinquished at this time
--- NOTE | 2021-12-10 09:03 | PC.NURSE ---
called [facility], they do not have beds this am for covid + but recheck later today, discharges may happen. called [facility] they may have discharges today, please call again this afternoon will pass on to NURSE ADVISOR regarding above
[2021-12-10 14:04] LABS: COVID19 -Nasal RAPID Negative (Negative)
--- NOTE | 2021-12-10 14:35 | CM.SWNOTE ---
MASSAGE OPERATOR Note MASSAGE OPERATOR meets with patient and patient endorses intrusive thoughts and interest in inpatient tx. MASSAGE OPERATOR calls [facility], it is reported they can review patient. MASSAGE OPERATOR faxes clinicals for review. MASSAGE OPERATOR calls [facility] intake, it is reported that they can review patient, MASSAGE OPERATOR faxes clinicals for review. MASSAGE OPERATOR receives call from Rudy at [facility] who requests new rapid covid test, patient tests negative on 12/10/21, MASSAGE OPERATOR faxes lab results. Rudy at [facility] calls and reports that patient has been accepted by accepting provider BESSIE Pham at any time. Nurse to nurse is [phone]. [facility] sets up transportation for [id number]. MASSAGE OPERATOR reviews this with patient who indicates agreement and understanding. Plan: patient to transfer to [facility] this afternoon via BLS for voluntary hospitalization. Sherlyn Zavala, DATABASES COMPUTER CONSULTANT
== END 2021-12-10 15:15 | disposition short-term general hospital (02) ==
PROVIDERS: Emergency Medicine; Emergency Provider Emergency Medicine; PCP Family Medicine
DX: R45.851 Suicidal ideations (principal); F41.9 Anxiety disorder, unspecified; Z20.822 Contact with and (suspected) exposure to COVID-19
CPT/HCPCS: 80053; 80305; 80320; 81003; 81025; 84443; 85025; 87635; 99284; C9803

== ENCOUNTER 2022-05-15 21:17 | Emergency (ER) | payer OTHER, MEDICAID, SELFPAY ==
[2022-05-15] VITALS (18 sets, daily range): BP systolic 118–146; BP diastolic 64–92; PULSE 68–99; RESP 18; TEMP 36.6; O2SAT 96–100; BMI 16.6
--- NOTE | 2022-05-15 21:10 | PC.NURSE ---
pt c/o having a TIA pt states she has a hx of TIAs
--- NOTE | 2022-05-15 22:33 | DI.CT.S_ITS ---
PROCEDURE: CT ANGIO HEAD AND NECK INDICATIONS: tia TECHNIQUE: Pre-contrast 4.5 mm thick sections acquired from the foramen magnum to the vertex. After the administration of intravenous contrast, 1 mm thick sections acquired from the aortic arch through the [place] of [place]. Post-contrast 4.5 mm thick sections then re-acquired from the foramen magnum to the vertex. 3-dimensional nieleba-yfigmvgkz-axpznaaxpj (MIP) and/or volume rendering reformats were acquired of the central intracranial vasculature and neck separately. For radiation dose reduction, the following was used: automated exposure control, adjustment of mA and/or kV according to patient size. COMPARISON: None. FINDINGS: Image quality: Excellent. BRAIN: CSF spaces: Basal cisterns are patent. No extra-axial fluid collections. Ventricles are normal in size and shape. Brain: No intracranial hemorrhage, mass, or mass effect. Tom[place]inson-white matter interface appears preserved. No abnormal intracranial enhancement. Skull and face: Calvarium and facial bones appear intact, without suspicious lesions. Orbits appear normal. Sinuses: Sinuses and mastoids are clear. HEAD CT ANGIOGRAPHY: Anterior circulation: Intracranial internal carotid arteries are normal in size and appear patent bilaterally. The paired anterior cerebral arteries appear patent bilaterally. The anterior communicating artery also appears patent. The middle cerebral arteries appear patent bilaterally. No high-grade stenosis, occlusion, or filling defects. No cerebral aneurysms identified. Posterior circulation: Visualized portions of the vertebral arteries demonstrate normal caliber, and join to form a patent basilar artery. The posterior cerebral arteries appears patent bilaterally. No high-grade stenosis, occlusion, or filling defects. No cerebral aneurysms identified. NECK CT ANGIOGRAPHY: Carotid system: The great vessels demonstrate a conventional anatomy as they arise from the aortic arch. The origins of the common carotid arteries appear patent. The common carotid arteries demonstrate normal caliber and courses. The bifurcation regions are both widely patent. The internal carotid arteries demonstrate normal calibers and courses. Posterior circulation: The origins of the vertebral arteries both appear patent. The more superior extracranial portions of both vertebral arteries also demonstrate normal courses and calibers. They join to form a patent basilar artery. Soft tissues: Visualized neck soft tissues demonstrate no suspicious abnormalities. Bones: No suspicious bony lesions. Visualized cervical spine demonstrates straightening of the cervical lordosis. There is multilevel degenerative disc disease and facet joint arthropathy. IMPRESSION: 1. No acute intracranial abnormality. 2. No high-grade stenosis or occlusion of the central intracranial arteries. 3. No high-grade stenosis or occlusion of the head and neck arteries. Carotid bulbs appear widely patent. Any quantitative measurements of stenosis were performed using NASCET criteria. Dictated by: Eric Cowart M.D. on 05/15/2022 at 23:53 Approved by: Eric Cowart M.D. on 05/15/2022 at 23:56
[2022-05-15 23:03] LABS: UR Morphine/Opiate cutoff 300 Negative (Negative); Ur Creatinine Normal (Normal); Ur Specific Gravity Normal (Normal); Urine Amphetamines Negative (Negative); Urine Barbiturates Negative (Negative); Urine Benzodiazepines Negative (Negative); Urine Cocaine Negative (Negative); Urine MDMA Negative (Negative); Urine Methadone Negative (Negative); Urine Methamphetamines Negative (Negative); Urine Oxycodone Negative (Negative); Urine Phencyclidine Negative (Negative); Urine Tetrahydrocannabinol Positive (Negative); Urine Tricyclic Antidepressant Negative (Negative); Urine pH Normal (Normal)
[2022-05-15 23:04] LABS: Add Manual Diff / Slide Review NO; Basophils Absolute Auto 100 /uL (0-100); Eosinophils Absolute Auto 0 /uL (0-450); Eosinophils Percent Auto 0.4 % (2-4); Hemoglobin 14.3 g/dL (12.0-16.0); Lymphocytes Absolute Auto 2300 /uL (1100-4500); Lymphocytes Percent Auto 25.2 % (25-40); Mean Corpuscular HGB Conc 34.8 % (30-36); Mean Corpuscular Hemoglobin 30.1 PG (26-34); Mean Corpuscular Volume 86.4 fL (80-100); Monocytes Absolute Auto 900 /uL (0-900); Monocytes Percent Auto 9.7 % (3-14); Neutrophils Absolute Auto 5900 /uL (1500-7000); Neutrophils Percent Auto 63.7 % (50-75); Platelet Count 240 X10^3/uL (150-400); Red Blood Cell Count 4.75 X10^6/uL (4.0-5.2); Red Cell Distribution Width 14.4 % (11.6-14.8); White Blood Cell Count 9.2 X10^3/uL (4.5-11.0)
[2022-05-15 23:17] LABS: INR 1.1 (0.9-1.3); Prothrombin Time 12.8 SECONDS (10.1-12.7)
[2022-05-15 23:20] LABS: PTT Partial Thromboplastin Tim 33 SECONDS (26-36)
[2022-05-15 23:23] LABS: Ethanol (ETOH) < 10 mg/dL
[2022-05-15 23:30] LABS: Alanine Aminotransferase 30 IU/L (<35); Albumin 5.1 g/dL (3.5-5.0); Albumin Globulin Ratio 1.3 (1.0-2.8); Alkaline Phosphatase 69 U/L (38-126); Aspartate Aminotransferase 34 IU/L (14-36); BUN Creatinine Ratio 11.5 (6-22); Bilirubin Total 0.7 mg/dL (0.2-1.3); Blood Urea Nitrogen 7 mg/dL (7-17); Calcium 9.8 mg/dL (8.4-10.2); Carbon Dioxide 24 mmol/L (22-32); Chloride 105 mmol/L (98-107); Creatine Kinase 109 U/L (30-135); Estimated Glomerular Filt Rate > 60 mL/min (>60); Glucose 98 mg/dL (70-100); HEMOLYSIS < 15 (0-50); Potassium 3.6 mmol/L (3.4-5.1); Sodium 141 mmol/L (137-145); Total Protein 9.1 g/dL (6.3-8.2)
[2022-05-15 23:42] LABS: Troponin I < 0.012 ng/mL (0.01-0.034)
[2022-05-15 23:45] LABS: CKMB % Relative Index 0.5 % (1.5-5.0); Creatine Kinase MB 0.56 ng/mL (<2.37)
[2022-05-16] VITALS: BP 130/76; PULSE 79; O2SAT 97
--- NOTE | 2022-05-16 00:28 | ED_ITS ---
HPI - Neuro Symptoms/Deficit General Chief Complaint: Neuro Symptoms/Deficit Stated Complaint: possible TIA Time Seen by Provider: 05/15/22 22:31 Source: patient and EMS Mode of arrival: EMS History of Present Illness HPI Narrative: Patient is a 21-year-old presenting today with what she thinks is a TIA. He reports that she is a history of insomnia she really has not slept and over 24 hours. She was very angry over a coffee stating and was yelling at her mom. She went up to her room when she started noticing some tingling in her arm and in her leg she thought it was weak. He then noticed some stuttering in her speech. I all started around 2:00 p.m. On Anticoagulants: No Related Data Home Medications Medication Instructions Recorded Confirmed control PO 07/18/21 07/18/21 Vitamin D PO 07/18/21 07/18/21 Previous Rx's Medication Instructions Recorded metoclopramide HCl 10 mg 10 mg PO Q6H PRN nausea and 07/19/21 disintegrating tablet vomiting #10 tabs Allergies Allergy/AdvReac Type Severity Reaction Status Date / Time No Known Drug Allergies Allergy Verified 07/18/21 18:04 Review of Systems Review of Systems ROS Unobtainable: All systems reviewed & are unremarkable except as noted in HPI and below Hematologic/Lymphatic On Anticoagulants: No Patient History Medical History Depression with anxiety Eating disorder Obsessive compulsive disorder Social History Smoking Status: Never smoker Smoking Status: Never smoker alcohol intake frequency: holidays/special occasions only Substance Use Type: marijuana Exam Initial Vital Signs Initial Vital Signs: Vital Signs Temperature 97.9 F 05/15/22 21:10 Pulse Rate 86 05/15/22 21:10 Respiratory Rate 18 05/15/22 21:10 Blood Pressure 134/74 05/15/22 21:10 Pulse Oximetry 99 05/15/22 21:10 Oxygen Delivery Method Room Air 05/15/22 21:10 GENERAL: Alert pleasant 21 and in no acute distress. HEENT: Head atraumatic,EOMI, pupils reactive, face symmetric, moist mucous membranes CARDIOVASCULAR: Regular rate and rhythm without murmurs, rubs or gallops. RESPIRATORY: Breath sounds equal bilaterally, no wheezes rales or rhonchi. ABDOMEN: Soft, nontender. Normoactive bowel sounds all 4 quadrants. No guarding or rebound. EXTREMITIES: Normal range of motion, no clubbing or edema. Neurovascularly intact NEUROLOGICAL: Alert and oriented x4.Normal gait and speech. Cranial nerves II through XII grossly intact. Good [id number], good cmir-ia-[id number], strength equal bilaterally, no dysarthria or aphasia, sensation in tact to soft touch bilaterally, no visual changes, no facial droop SKIN: Warm, dry, no laceration, no petechiae, no rashes or lesions. Scores NIH Stroke Scale Level of Conciousness: Alert, keenly responsive Ask month/age: Answers both questions correctly. Open/close eyes, close hand: Performs both tasks correctly Best gaze horizontal: Normal Visual torres: No visual loss Facial palsy: Normal symetrical movement Left arm drift: No drift for full 10 sec Right arm drift: No drift for full 10 sec Left leg drift: No drift for full 5 sec Right leg drift: No drift for full 5 sec Limb ataxia: Absent Sensory on face/arms/legs: Normal, no sensory loss Best language: No aphasia, normal Dysarthria: Normal Extinction or inattention: No abnormality Total NIH Stroke scale score: 0 Course Orders Ordered: ED Orders 05/15/22 22:31 EKG-12 Lead Stat 05/15/22 22:33 CT angio head and neck Stat 05/15/22 22:50 Urine Drug Screen, Rapid Stat 05/15/22 22:55 Complete Blood Count AUTO DIFF Stat Comprehensive Metabolic Panel Stat Ethanol (ETOH) Stat PTT Partial Thromboplastin Ishan Stat Prothrombin Time INR Stat Troponin & CK Cardiac Panel Stat Discontinued Medications Sodium Chloride (Normal Saline 0.9%) 1,000 mls @ 1,000 mls/hr IV BOLUS ONE Stop: 05/15/22 23:32 Vital Signs Vital signs: Vital Signs - 8 hr 05/15/22 23:53 05/15/22 23:53 05/16/22 00:00 Pulse Rate 68 Respiratory Rate Blood Pressure 134/64 130/76 Pulse Oximetry 100 05/16/22 00:00 05/16/22 00:30 05/16/22 00:30 Pulse Rate 79 79 Respiratory Rate 18 Blood Pressure 127/82 Pulse Oximetry 97 99 MDM - Neuro Symptoms/Deficit Lab Data 05/15/22 22:55 05/15/22 22:55 Labs: Lab Results 05/15/22 05/15/22 05/15/22 Range/Units 22:50 22:55 22:55 WBC 9.2 (4.5-11.0) X10^3/uL RBC 4.75 (4.0-5.2) X10^6/uL Hgb 14.3 (12.0-16.0) g/dL Hct 41.0 (36-46) % MCV 86.4 (80-100) fL MCH 30.1 (26-34) PG MCHC 34.8 (30-36) % RDW 14.4 (11.6-14.8) % Plt Count 240 (150-400) X10^3/uL Neut % (Auto) 63.7 (50-75) % Lymph % (Auto) 25.2 (25-40) % [place] % (Auto) 9.7 (3-14) % Eos % (Auto) 0.4 L (2-4) % Baso % (Auto) 1.0 (0-2) % Neut # (Auto) 5900 (1251-5908) /uL Lymph # (Auto) 2300 (7834-0499) /uL [place] # (Auto) 900 (0-900) /uL Eos # (Auto) 0 (0-450) /uL Baso # (Auto) 100 (0-100) /uL PT 12.8 H (10.1-12.7) SECONDS INR 1.1 (0.9-1.3) APTT 33 (26-36) SECONDS Sodium (137-145) mmol/L Potassium (3.4-5.1) mmol/L Chloride (98-107) mmol/L Carbon Dioxide (22-32) mmol/L BUN (7-17) mg/dL Creatinine (0.52-1.04) mg/dL Estimated GFR (>60) mL/min BUN/Creatinine Ratio (6-22) Glucose (70-100) mg/dL Calcium (8.4-10.2) mg/dL Total Bilirubin (0.2-1.3) mg/dL AST (14-36) IU/L ALT (<35) IU/L Alkaline Phosphatase (38-126) U/L Total Creatine Kinase (30-135) U/L CK-MB (CK-2) (<2.37) ng/mL CK-MB (CK-2) Rel Index (1.5-5.0) % Troponin I (0.01-0.034) ng/mL Total Protein (6.3-8.2) g/dL Albumin (3.5-5.0) g/dL Globulin (1.7-4.1) g/dL Albumin/Globulin Ratio (1.0-2.8) U Opiates 300ng/mL cut Negative (Negative) Ur Oxycodone Screen Negative (Negative) Urine Methadone Screen Negative (Negative) Ur Barbiturates Screen Negative (Negative) U Tricyclic Antidepress Negative (Negative) Ur Phencyclidine Scrn Negative (Negative) Ur Amphetamines Screen Negative (Negative) U Methamphetamines Scrn Negative (Negative) Ur MDMA Scrn (Ecstasy) Negative (Negative) U Benzodiazepines Scrn Negative (Negative) Urine Cocaine Screen Negative (Negative) U Marijuana (THC) Screen Positive H (Negative) Ethyl Alcohol ( - 10) mg/dL 05/15/22 Range/Units 22:55 WBC (4.5-11.0) X10^3/uL RBC (4.0-5.2) X10^6/uL Hgb (12.0-16.0) g/dL Hct (36-46) % MCV (80-100) fL MCH (26-34) PG MCHC (30-36) % RDW (11.6-14.8) % Plt Count (150-400) X10^3/uL Neut % (Auto) (50-75) % Lymph % (Auto) (25-40) % [place] % (Auto) (3-14) % Eos % (Auto) (2-4) % Baso % (Auto) (0-2) % Neut # (Auto) (1167-3501) /uL Lymph # (Auto) (8572-2586) /uL Trinity # (Auto) (0-900) /uL Eos # (Auto) (0-450) /uL Baso # (Auto) (0-100) /uL PT (10.1-12.7) SECONDS INR (0.9-1.3) APTT (26-36) SECONDS Sodium 141 (137-145) mmol/L Potassium 3.6 (3.4-5.1) mmol/L Chloride 105 (98-107) mmol/L Carbon Dioxide 24 (22-32) mmol/L BUN 7 (7-17) mg/dL Creatinine 0.61 (0.52-1.04) mg/dL Estimated GFR > 60 (>60) mL/min BUN/Creatinine Ratio 11.5 (6-22) Glucose 98 (70-100) mg/dL Calcium 9.8 (8.4-10.2) mg/dL Total Bilirubin 0.7 (0.2-1.3) mg/dL AST 34 (14-36) IU/L ALT 30 (<35) IU/L Alkaline Phosphatase 69 (38-126) U/L Total Creatine Kinase 109 (30-135) U/L CK-MB (CK-2) 0.56 (<2.37) ng/mL CK-MB (CK-2) Rel Index 0.5 L (1.5-5.0) % Troponin I < 0.012 (0.01-0.034) ng/mL Total Protein 9.1 H (6.3-8.2) g/dL Albumin 5.1 H (3.5-5.0) g/dL Globulin 4.0 (1.7-4.1) g/dL Albumin/Globulin Ratio 1.3 (1.0-2.8) U Opiates 300ng/mL cut (Negative) Ur Oxycodone Screen (Negative) Urine Methadone Screen (Negative) Ur Barbiturates Screen (Negative) U Tricyclic Antidepress (Negative) Ur Phencyclidine Scrn (Negative) Ur Amphetamines Screen (Negative) U Methamphetamines Scrn (Negative) Ur MDMA Scrn (Ecstasy) (Negative) U Benzodiazepines Scrn (Negative) Urine Cocaine Screen (Negative) U Marijuana (THC) Screen (Negative) Ethyl Alcohol < 10 ( - 10) mg/dL Point of Care Testing Test Results Negative Urine Dip Bedside Urine Glucose Negative Bedside Urine Bilirubin - Negative Bedside Urine Ketone - Negative Urine Specific [place] 1.005 Bedside Urine Occult Blood - Negative Bedside Urine pH 7.5 Bedside Urine Protein - Negative Bedside Urine Urobilinogen - Negative Bedside Urine Nitrite - Negative Bedside Urine Leukocytes - Negative Esterase Imaging Data CTA - brain/neck: Radiologist's Impression: PROCEDURE:? CT ANGIO HEAD AND NECK ? INDICATIONS:? tia ? TECHNIQUE:? Pre-contrast 4.5 mm thick sections acquired from the foramen magnum to the juan alberto dominga.? After the administration of intravenous contrast, 1 mm thick sections acquired from the aortic arch through the [place].? Post-contrast 4.5 mm thick sections then re- acquired from the foramen magnum to the vertex.? 3-dimensional ajdtilv-mtfeurhjz-jayjxtkmuf (MIP) and/or volume rendering reformats were acquired of the central intracranial vasculature and neck separately. For radiation dose reduction, the following was used:? automated exposure control, adjustment of mA and/or kV according to patient size.? ? COMPARISON:? None. ? FINDINGS:? Image quality:? Excellent.? ? BRAIN:? CSF spaces:? Basal cisterns are patent.? No extra-axial fluid collections.? Ventricles are normal in size and shape.? ? Brain:? No intracranial hemorrhage, mass, or mass effect.? Tomlinson-white matter interface appears preserved.? No abnormal intracranial enhancement.? ? Skull and face:? Calvarium and facial bones appear intact, without suspicious lesions.? Orbits appear normal.? ? Sinuses:? Sinuses and mastoids are clear.? ? HEAD CT ANGIOGRAPHY:? Anterior circulation:? Intracranial internal carotid arteries are normal in size and appear patent bilaterally.? The paired anterior cerebral arteries appear patent bilaterally.? The anterior communicating artery also appears patent. The middle cerebral arteries appear patent bilaterally.? No high-grade stenosis, occlusion, or filling defects.? No cerebral aneurysms identified. ? Posterior circulation:? Visualized portions of the vertebral arteries d emonstrate normal caliber, and join to form a patent basilar artery.? The posterior cerebral arteries appears patent bilaterally.? No high-grade stenosis, occlusion, or filling defects.? No cerebral aneurysms identified. ? NECK CT ANGIOGRAPHY:? Carotid system:? The great vessels demonstrate a conventional anatomy as they arise from the aortic arch.? The origins of the common carotid arteries appear patent.? The common carotid arteries demonstrate normal caliber and courses.? The bifurcation lizeth ons are both widely patent.? The internal carotid arteries demonstrate normal calibers and courses.? ? Posterior circulation:? The origins of the vertebral arteries both appear patent.? The more superior extracranial portions of both vertebral arteries also demonstrate normal courses and calibers.? They join to form a patent basilar artery.? ? Soft tissues:? Visualized neck soft tissues demonstrate no suspicious abnormalities.? ? Bones:? No suspicious bony lesions.? Visualized cervical spine demonstrates straightening of the cervical lordosis.? There is multilevel degenerative disc disease and facet joint arthropathy.? ? ? IMPRESSION:? ? 1. No acute intracranial abnormality. ? 2. No high-grade stenosis or occlusion of the central intracranial arteries. ? 3. No high-grade stenosis or occlusion of the head and neck arteries.? Carotid bulbs appear widely patent.? ? Any quantitative measurements of stenosis were performed using NASCET criteria.? ? ? Dictated by: Eric Cowart M.D. on 05/15/2022 at 23:53 ? ? ECG Data Interpretation: Normal sinus rhythm rate 74 NM interval [address] changes no T-wave inversion MDM Narrative Medical decision making narrative: Patient is a thin 21-year-old presenting today with tingling in her right hand and leg. She also had some stuttering of speech. This has happened all after greater than 24 hours of being awake she suffers from insomnia and in argument. Symptoms were the necessarily consistent with TIA or CVA, I suspect more of a anxiety stress reaction, rather than TIA. Head CT angio is negative for any finding. Blood work is reassuring Discharge Plan Departure Patient Disposition: Home Clinical Impression: Stress reaction, Peripheral neuropathy, Acute insomnia Instructions: Insomnia Activity Restrictions/Additional Instructions: *You have been diagnosed with insomnia, stress reaction, peripheral neuropathy *What to do: At this time it is highly unlikely that you have had a TIA. Her workup in the emergency department is negative. I recommend that you go get some rest think it will help solve a lot. *Continue to take medications as directed *Follow up with your primary care provider in 2-3 days or call [phone] *Return to ER if you should have weakness headache or any new, worsening or concerning symptoms Prescriptions: No Action control PO Vitamin D PO metoclopramide HCl 10 mg tablet,disintegrating 10 mg PO Q6H PRN (Reason: nausea and vomiting) Qty: 10 0RF Referrals: Alee Ritter MD [Primary Care Provider] - Stand Alone Forms: Patient Portal/API
[2022-05-16 00:30] VITALS: BP 127/82; PULSE 79; RESP 18; O2SAT 99
== END 2022-05-16 01:12 | disposition home or self-care (01) ==
PROVIDERS: Emergency Provider Emergency Medicine; PCP Family Medicine
DX: F43.0 Acute stress reaction (principal); G62.9 Polyneuropathy, unspecified; G47.00 Insomnia, unspecified; R07.9 Chest pain, unspecified
CPT/HCPCS: 36415; 70496; 70498; 80053; 80305; 80320; 81003; 81025; 82550; 82553; 84484; 85025; 85610; 85730; 93005; 93010; 99284; Q9967

== ENCOUNTER 2022-07-19 00:06 | Emergency (ER) | payer OTHER, MEDICAID, SELFPAY ==
[2022-07-19 00:16] VITALS: BP 124/82; PULSE 100; RESP 16; TEMP 37.8; O2SAT 97; BMI 17.9
[2022-07-19] MEDS: KETOROLAC 30 MG/ML VIAL 15 MG IV (01:31)
[2022-07-19] MEDS: SODIUM CHLORIDE 0.9% 1,000 ML 1000 ML IV (01:31)
--- NOTE | 2022-07-19 02:11 | ED_ITS ---
HPI - Abdominal Pain General Chief Complaint: Abdominal Pain Stated Complaint: ABD pain... 3 days Time Seen by Provider: 07/19/22 01:12 Source: patient Mode of arrival: Family Vehicle History of Present Illness HPI narrative: Patient is a 21-year-old female presenting today with epigastric pain nausea vomiting ongoing for the last 3-4 days. She says she is been up everything she eats. She is tolerating some fluids. She is noted to have low-grade fever here. She is no lower abdominal pain. She reports that she has been taking more ibuprofen lately she is 800 mg at home she is taking half for full tablet which she knows increases her chance of ulcers and other issues. She denies any diarrhea. No chest pain cough or shortness of breath. Related Data Home Medications Medication Instructions Recorded Confirmed control PO 07/18/21 07/18/21 Vitamin D PO 07/18/21 07/18/21 Previous Rx's Medication Instructions Recorded metoclopramide HCl 10 mg 10 mg PO Q6H PRN nausea and 07/19/21 disintegrating tablet vomiting #10 tabs ondansetron 4 mg disintegrating 4 mg PO Q8H PRN nausea and 07/19/22 tablet vomiting #10 tabs Allergies Allergy/AdvReac Type Severity Reaction Status Date / Time No Known Drug Allergies Allergy Verified 07/18/21 18:04 Review of Systems Review of Systems ROS Unobtainable: All systems reviewed & are unremarkable except as noted in HPI and below Patient History Medical History Depression with anxiety Eating disorder Obsessive compulsive disorder Social History Smoking Status: Never smoker Smoking Status: Never smoker alcohol intake frequency: holidays/special occasions only Substance Use Type: marijuana Exam Initial Vital Signs Initial Vital Signs: Vital Signs Temperature 100.1 F H 07/19/22 00:16 Pulse Rate 100 H 07/19/22 00:16 Respiratory Rate 16 07/19/22 00:16 Blood Pressure 124/82 07/19/22 00:16 Pulse Oximetry 97 07/19/22 00:16 Oxygen Delivery Method Room Air 07/19/22 00:16 GENERAL: Alert thin well-appearing 21-year-old HEENT: Head atraumatic,EOMI, pupils reactive, face symmetric, moist mucous me mbranes CARDIOVASCULAR: Regular rate and rhythm without murmurs, rubs or gallops. RESPIRATORY: Breath sounds equal bilaterally, no wheezes rales or rhonchi. ABDOMEN: Soft, epigastric pain mild right upper quadrant pain : No CVA tenderness EXTREMITIES: Normal range of motion, no clubbing or edema. Neurovascularly intact NEUROLOGICAL: Alert and oriented x4. SKIN: Warm, dry, no laceration, no petechiae, no rashes or lesions. Course Orders Ordered: ED Orders 07/19/22 02:08 Complete Blood Count AUTO DIFF Stat Comprehensive Metabolic Panel Stat Lipase Stat 07/19/22 02:14 US abdomen limited Stat Discontinued Medications Sodium Chloride (Normal Saline 0.9%) 1,000 mls @ 1,000 mls/hr IV BOLUS ONE Stop: 07/19/22 02:11 Last Infusion: 07/19/22 02:30 Dose: 0 mls/hr Documented By: Admin: 07/19/22 01:31 Dose: 1,000 mls/hr Documented By: HAYLEY Ketorolac Tromethamine (Ketorolac 30 Mg/Ml Vial) 30 mg IV NOW ONE Stop: 07/19/22 01:13 Ketorolac Tromethamine (Ketorolac 30 Mg/Ml Vial) 15 mg IV NOW ONE Stop: 07/19/22 01:31 Last Admin: 07/19/22 01:31 Dose: 15 mg Documented By: HAYLEY Ondansetron HCl (Ondansetron 4 Mg/2 Ml Inj) 4 mg IV NOW ONE Stop: 07/19/22 02:13 Last Admin: 07/19/22 02:22 Dose: 4 mg Documented By: HAYLEY Ondansetron HCl (Ondansetron 4 Mg Odt Prepack) 1 bottle MISC SEEINSTR ONE Stop: 07/19/22 03:49 Last Admin: 07/19/22 04:33 Dose: 1 bottle Documented By: JUAN Pantoprazole Sodium (Pantoprazole 40 Mg Vial) 40 mg IV NOW ONE Stop: 07/19/22 02:13 Last Admin: 07/19/22 02:22 Dose: 40 mg Documented By: HAYLEY Vital Signs Vital signs: Vital Signs - 8 hr 07/19/22 00:16 07/19/22 04:34 Temperature 100.1 F H Pulse Rate 100 H 78 Respiratory Rate 16 16 Blood Pressure 124/82 110/78 Pulse Oximetry 97 98 Oxygen Delivery Method Room Air Room Air MDM - Abdominal Pain Lab Data 07/19/22 02:08 07/19/22 02:08 Labs: Lab Results 07/19/22 07/19/22 Range/Units 02:08 02:08 WBC 8.9 (4.5-11.0) X10^3/uL RBC 4.01 (4.0-5.2) X10^6/uL Hgb 12.3 (12.0-16.0) g/dL Hct 35.3 L (36-46) % MCV 88.1 (80-100) fL MCH 30.7 (26-34) PG MCHC 34.9 (30-36) % RDW 13.2 (11.6-14.8) % Plt Count 210 (150-400) X10^3/uL Neut % (Auto) 57.1 (50-75) % Lymph % (Auto) 30.4 (25-40) % [place] % (Auto) 10.9 (3-14) % Eos % (Auto) 0.8 L (2-4) % Baso % (Auto) 0.8 (0-2) % Neut # (Auto) 5100 (5323-6373) /uL Lymph # (Auto) 2700 (2283-9694) /uL [place] # (Auto) 1000 H (0-900) /uL Eos # (Auto) 100 (0-450) /uL Baso # (Auto) 100 (0-100) /uL Sodium 139 (137-145) mmol/L Potassium 3.3 L (3.4-5.1) mmol/L Chloride 109 H (98-107) mmol/L Carbon Dioxide 23 (22-32) mmol/L BUN 8 (7-17) mg/dL Creatinine 0.67 (0.52-1.04) mg/dL Estimated GFR > 60 (>60) mL/min BUN/Creatinine Ratio 11.9 (6-22) Glucose 92 (70-100) mg/dL Calcium 8.6 (8.4-10.2) mg/dL Total Bilirubin 0.5 (0.2-1.3) mg/dL AST 23 (14-36) IU/L ALT 28 (<35) IU/L Alkaline Phosphatase 53 (38-126) U/L Total Protein 6.8 (6.3-8.2) g/dL Albumin 3.9 (3.5-5.0) g/dL Globulin 2.9 (1.7-4.1) g/dL Albumin/Globulin Ratio 1.3 (1.0-2.8) Lipase 42 (23-300) U/L Point of care testing: Point of Care Testing Test Results Negative Urine Dip Bedside Urine Glucose Negative Bedside Urine Bilirubin - Negative Bedside Urine Ketone + 15 Urine Specific [place] 1.015 Bedside Urine Occult Blood - Negative Bedside Urine pH 7.5 Bedside Urine Protein - Negative Bedside Urine Urobilinogen - Negative Bedside Urine Nitrite - Negative Bedside Urine Leukocytes - Negative Esterase Imaging Data US - abdomen: Radiologist's Impression: Preliminary report unremarkable right upper quadrant ultrasound MDM Narrative Medical decision making narrative: Patient healthy 21-year-old female presenting with nausea vomiting low-grade fever. Having some epigastric right upper quadrant pain. Blood work is overall reassuring without elevated liver enzymes bilirubin or lipase. Ultrasound does not show any abnormality in gallbladder. Tolerating fluids feeling better. Discharge Plan Departure Patient Disposition: Home Clinical Impression: Gastroenteritis Instructions: DI for Viral Gastroenteritis -- Adult Activity Restrictions/Additional Instructions: *You have been diagnosed with gastroenteritis *What to do: Increase fluid intake as tolerated. Recommend Gatorade or Gatorade like product increase diet as tolerated *Continue to take medications as directed Zofran 4 mg every 8 hours if needed for nausea vomiting *Follow up with your primary care provider in 2-3 days or call [phone] *Return to ER if you should have persistent vomiting increasing pain or any new, worsening or concerning symptoms Prescriptions: New ondansetron 4 mg tablet,disintegrating 4 mg PO Q8H PRN (Reason: nausea and vomiting) Qty: 10 0RF No Action control PO Vitamin D PO metoclopramide HCl 10 mg tablet,disintegrating 10 mg PO Q6H PRN (Reason: nausea and vomiting) Qty: 10 0RF Referrals: Alee Ritter MD [Primary Care Provider] - Stand Alone Forms: Patient Portal/API
--- NOTE | 2022-07-19 02:14 | DI.US.S_ITS ---
PROCEDURE: US ABDOMEN LIMITED INDICATIONS: RUQ PAIN TECHNIQUE: Real-time focused scanning was performed of the abdomen, with image documentation. COMPARISON: None. FINDINGS: Liver has a normal echo pattern. Gallbladder is unremarkable without gallstones or wall thickening or pain on examination. No dilated ducts. Common bile duct measures 2.0 mm. Visualized portions of the pancreas are unremarkable. IMPRESSION: Unremarkable right upper quadrant ultrasound. No evidence of gallstone disease. Comment: Final report is concordant with preliminary interpretation provided by [facility]. Dictated by: Alec Mclaughlin M.D. on 07/19/2022 at 7:58 Approved by: Alec Mclaughlin M.D. on 07/19/2022 at 7:59
[2022-07-19 02:22] LABS: Add Manual Diff / Slide Review NO; Basophils Absolute Auto 100 /uL (0-100); Basophils Percent Auto 0.8 % (0-2); Eosinophils Absolute Auto 100 /uL (0-450); Eosinophils Percent Auto 0.8 % (2-4); Hematocrit 35.3 % (36-46); Hemoglobin 12.3 g/dL (12.0-16.0); Lymphocytes Absolute Auto 2700 /uL (1100-4500); Lymphocytes Percent Auto 30.4 % (25-40); Mean Corpuscular HGB Conc 34.9 % (30-36); Mean Corpuscular Hemoglobin 30.7 PG (26-34); Mean Corpuscular Volume 88.1 fL (80-100); Monocytes Absolute Auto 1000 /uL (0-900); Monocytes Percent Auto 10.9 % (3-14); Neutrophils Absolute Auto 5100 /uL (1500-7000); Neutrophils Percent Auto 57.1 % (50-75); Platelet Count 210 X10^3/uL (150-400); Red Blood Cell Count 4.01 X10^6/uL (4.0-5.2); Red Cell Distribution Width 13.2 % (11.6-14.8); White Blood Cell Count 8.9 X10^3/uL (4.5-11.0)
[2022-07-19] MEDS: PANTOPRAZOLE 40 MG VIAL IV (02:22)
[2022-07-19] MEDS: ONDANSETRON 4 MG/2 ML INJ IV (02:22)
[2022-07-19 02:26] LABS: Alanine Aminotransferase 28 IU/L (<35); Albumin 3.9 g/dL (3.5-5.0); Albumin Globulin Ratio 1.3 (1.0-2.8); Alkaline Phosphatase 53 U/L (38-126); Aspartate Aminotransferase 23 IU/L (14-36); BUN Creatinine Ratio 11.9 (6-22); Bilirubin Total 0.5 mg/dL (0.2-1.3); Blood Urea Nitrogen 8 mg/dL (7-17); Calcium 8.6 mg/dL (8.4-10.2); Carbon Dioxide 23 mmol/L (22-32); Chloride 109 mmol/L (98-107); Estimated Glomerular Filt Rate > 60 mL/min (>60); Globulin 2.9 g/dL (1.7-4.1); Glucose 92 mg/dL (70-100); HEMOLYSIS < 15 (0-50); Potassium 3.3 mmol/L (3.4-5.1); Sodium 139 mmol/L (137-145); Total Protein 6.8 g/dL (6.3-8.2)
[2022-07-19 02:27] LABS: Lipase 42 U/L (23-300)
[2022-07-19] MEDS: ONDANSETRON 4 MG ODT PREPACK 1 BOTTLE MISC (04:33)
[2022-07-19 04:34] VITALS: BP 110/78; PULSE 78; RESP 16; O2SAT 98
== END 2022-07-19 04:35 | disposition home or self-care (01) ==
PROVIDERS: Emergency Provider Emergency Medicine; PCP Family Medicine
DX: K52.9 Noninfective gastroenteritis and colitis, unspecified (principal)
CPT/HCPCS: 36415; 76705; 80053; 81003; 81025; 83690; 85025; 99284; C9113; J1885; J2405

== ENCOUNTER 2022-07-19 23:43 | Emergency (ER) | payer OTHER, SELFPAY ==
[2022-07-19 23:49] VITALS: BP 118/56; PULSE 68; RESP 18; TEMP 37.1; O2SAT 97; BMI 18.0
[2022-07-20 00:47] LABS: Add Manual Diff / Slide Review NO; Basophils Absolute Auto 100 /uL (0-100); Basophils Percent Auto 1.1 % (0-2); Eosinophils Absolute Auto 0 /uL (0-450); Eosinophils Percent Auto 0.3 % (2-4); Hematocrit 38.2 % (36-46); Hemoglobin 13.4 g/dL (12.0-16.0); Lymphocytes Absolute Auto 2500 /uL (1100-4500); Lymphocytes Percent Auto 26.4 % (25-40); Mean Corpuscular HGB Conc 35.2 % (30-36); Mean Corpuscular Hemoglobin 30.6 PG (26-34); Mean Corpuscular Volume 86.9 fL (80-100); Monocytes Absolute Auto 1000 /uL (0-900); Monocytes Percent Auto 10.9 % (3-14); Neutrophils Absolute Auto 5800 /uL (1500-7000); Neutrophils Percent Auto 61.3 % (50-75); Platelet Count 265 X10^3/uL (150-400); Red Blood Cell Count 4.39 X10^6/uL (4.0-5.2); Red Cell Distribution Width 12.9 % (11.6-14.8); White Blood Cell Count 9.5 X10^3/uL (4.5-11.0)
[2022-07-20 00:53] LABS: Alanine Aminotransferase 30 IU/L (<35); Albumin 4.7 g/dL (3.5-5.0); Albumin Globulin Ratio 1.4 (1.0-2.8); Alkaline Phosphatase 65 U/L (38-126); Aspartate Aminotransferase 28 IU/L (14-36); BUN Creatinine Ratio 8.3 (6-22); Bilirubin Total 0.6 mg/dL (0.2-1.3); Blood Urea Nitrogen 7 mg/dL (7-17); Calcium 9.5 mg/dL (8.4-10.2); Carbon Dioxide 23 mmol/L (22-32); Chloride 108 mmol/L (98-107); Estimated Glomerular Filt Rate > 60 mL/min (>60); Globulin 3.3 g/dL (1.7-4.1); Glucose 105 mg/dL (70-100); HEMOLYSIS 17 (0-50); Lipase 50 U/L (23-300); Potassium 3.5 mmol/L (3.4-5.1); Sodium 142 mmol/L (137-145)
[2022-07-20 00:56] LABS: Bacteria Urine None Seen; Culture Indicated Urine Cult Not Indicated; RBC Urine None Seen (0-5/HPF); Squamous Epithelial Cell Urine 0-1 /HPF (0-5/HPF); WBC Urine None Seen (0-5/HPF)
--- NOTE | 2022-07-20 00:56 | DI.CT.S_ITS ---
PROCEDURE: CT ABDOMEN PELVIS W CON INDICATIONS: epigastric pain severe TECHNIQUE: After the administration of oral and intravenous contrast, axial sections acquired from the lung bases to the pubic symphysis. Coronal and sagittal reformats were performed. For radiation dose reduction, the following was used: automated exposure control, adjustment of mA and/or kV according to patient size. COMPARISON: None. FINDINGS: Image quality: Excellent. Lung bases: Unremarkable. Heart: No significant findings. ABDOMEN: Liver: Unremarkable. Gallbladder: Unremarkable. Biliary ducts: Unremarkable. Pancreas: Unremarkable. Spleen: Unremarkable. Adrenal Glands: Unremarkable. Kidneys and Ureters: Unremarkable. Stomach and Bowel: Stomach, small bowel loops, and colon are unremarkable. Peritoneum: No abnormal intraperitoneal fluid. No free air. Ventral Wall: No hernias. Abdominal Nodes: No retroperitoneal or mesenteric adenopathy by size criteria. Vessels: Aorta and inferior vena cava are normal in size. PELVIS: Pelvic Organs: Unremarkable. Bladder: Unremarkable. Pelvic Nodes: No enlarged lymph nodes. Miscellaneous: No hernias are seen. What appears to represent a normal appendix is seen at the right lower quadrant containing contrast. Bones: Unremarkable. IMPRESSION: Source of epigastric pain not identified. No sign of intestinal obstruction or perforation. What appears to be a normal appendix at the right lower quadrant was identified. Dictated by: Mahad Ambrosio M.D. on 07/20/2022 at 1:23 Approved by: Mahad Ambrosio M.D. on 07/20/2022 at 1:25
--- NOTE | 2022-07-20 00:58 | ED.ABDPAIN ---
HPI - Abdominal Pain General Chief Complaint: Abdominal Pain Stated Complaint: ABD Pain, diarhea, dizzy, chest pain Time Seen by Provider: 07/20/22 00:44 Source: patient Mode of arrival: Ambulatory History of Present Illness HPI narrative: Patient is a 21 year female history of anxiety presenting today for the 2nd time in 24 hours with severe epigastric pain nausea vomiting diarrhea constipation. She was seen evaluated last night by myself she had ultrasound on blood work thought to have a gastroenteritis sent home with Brian. She says that the [employer] was working earlier today she was able to go do stuff which was good. However tonight since 8:30pm she is had intense pain she appears quite uncomfortable she is nauseous with no active vomiting. She is not had any fever. She reports that she has felt faint she is had heart palpitations sometimes. She took Tylenol Motrin today she is not had significant relief. Related Data Home Medications Medication Instructions Recorded Confirmed control PO 07/18/21 07/18/21 Vitamin D PO 07/18/21 07/18/21 Previous Rx's Medication Instructions Recorded metoclopramide HCl 10 mg 10 mg PO Q6H PRN nausea and 07/19/21 disintegrating tablet vomiting #10 tabs ondansetron 4 mg disintegrating 4 mg PO Q8H PRN nausea and 07/19/22 tablet vomiting #10 tabs hydrocodone 5 mg-acetaminophen 325 1 tab PO Q6H PRN pain #10 tabs 07/20/22 mg tablet omeprazole 40 mg capsule,delayed 40 mg PO BID #30 caps 07/20/22 release Allergies Allergy/AdvReac Type Severity Reaction Status Date / Time No Known Drug Allergies Allergy Verified 07/19/22 23:49 Review of Systems Review of Systems ROS Unobtainable: All systems reviewed & are unremarkable except as noted in HPI and below Patient History Medical History Depression with anxiety Eating disorder Obsessive compulsive disorder Social History Smoking Status: Never smoker Smoking Status: Never smoker alcohol intake frequency: holidays/special occasions only Substance Use Type: marijuana Exam Initial Vital Signs Initial Vital Signs: Vital Signs Temperature 98.7 F 07/19/22 23:49 Pulse Rate 68 07/19/22 23:49 Respiratory Rate 18 07/19/22 23:49 Blood Pressure 118/56 L 07/19/22 23:49 Pulse Oximetry 97 07/19/22 23:49 Oxygen Delivery Method Room Air 07/19/22 23:49 GENERAL: Alert thin 21-year-old female appears uncomfortable moaning HEENT: Head atraumatic,EOMI, pupils reactive, face symmetric, moist mucous membranes CARDIOVASCULAR: Regular rate and rhythm without murmurs, rubs or gallops. RESPIRATORY: Breath sounds equal bilaterally, no wheezes rales or rhonchi. ABDOMEN: Soft, epigastric pain no guarding no rebound negative Daugherty sign EXTREMITIES: Normal range of motion, no clubbing or edema. Neurovascularly intact NEUROLOGICAL: Alert and oriented x4 SKIN: Warm, dry, no laceration, no petechiae, no rashes or lesions. Course Orders Ordered: ED Orders 07/20/22 EKG-12 Lead Routine 07/20/22 00:35 Complete Blood Count AUTO DIFF Stat Comprehensive Metabolic Panel Stat Lipase Stat 07/20/22 00:38 Urine Microscopic Stat 07/20/22 00:56 CT abdomen pelvis w con Stat Discontinued Medications Hydrocodone Bitart/Acetaminophen (Hydrocodone/Acet 5/325 Prepack) 1 bottle MISC SEEINSTR ONE Stop: 07/20/22 02:06 Last Admin: 07/20/22 02:14 Dose: 1 bottle Documented By: JUAN Hydromorphone HCl (Hydromorphone 0.5 Mg Inj) 0.5 mg IV NOW ONE Stop: 07/20/22 00:57 Last Admin: 07/20/22 01:26 Dose: 0.5 mg Documented By: JUAN Sodium Chloride (Normal Saline 0.9%) 1,000 mls @ 1,000 mls/hr IV BOLUS ONE Stop: 07/20/22 01:43 Last Infusion: 07/20/22 02:14 Dose: 0 mls/hr Documented By: Admin: 07/20/22 01:01 Dose: 1,000 mls/hr Documented By: JUAN Ondansetron HCl (Ondansetron 4 Mg Odt) 4 mg PO NOW PRN PRN Reason: Nausea And Vomiting Ondansetron HCl (Ondansetron 4 Mg/2 Ml Inj) 4 mg IV NOW PRN PRN Reason: Nausea And Vomiting Last Admin: 07/20/22 01:01 Dose: 4 mg Documented By: JUAN Pantoprazole Sodium (Pantoprazole 40 Mg Vial) 40 mg IV NOW ONE Stop: 07/20/22 00:45 Last Admin: 07/20/22 01:01 Dose: 40 mg Documented By: JUAN Vital Signs Vital signs: Vital Signs - 8 hr 07/19/22 23:49 07/20/22 02:31 Temperature 98.7 F Pulse Rate 68 78 Respiratory Rate 18 16 Blood Pressure 118/56 L 118/73 Pulse Oximetry 97 98 Oxygen Delivery Method Room Air Room Air MDM - Abdominal Pain Lab Data 07/20/22 00:35 07/20/22 00:35 Labs: Lab Results 07/20/22 07/20/22 07/20/22 Range/Units 00:35 00:35 00:38 WBC 9.5 (4.5-11.0) X10^3/uL RBC 4.39 (4.0-5.2) X10^6/uL Hgb 13.4 (12.0-16.0) g/dL Hct 38.2 (36-46) % MCV 86.9 (80-100) fL MCH 30.6 (26-34) PG MCHC 35.2 (30-36) % RDW 12.9 (11.6-14.8) % Plt Count 265 (150-400) X10^3/uL Neut % (Auto) 61.3 (50-75) % Lymph % (Auto) 26.4 (25-40) % [place] % (Auto) 10.9 (3-14) % Eos % (Auto) 0.3 L (2-4) % Baso % (Auto) 1.1 (0-2) % Neut # (Auto) 5800 (4300-3984) /uL Lymph # (Auto) 2500 (9910-7869) /uL [place] # (Auto) 1000 H (0-900) /uL Eos # (Auto) 0 (0-450) /uL Baso # (Auto) 100 (0-100) /uL Sodium 142 (137-145) mmol/L Potassium 3.5 (3.4-5.1) mmol/L Chloride 108 H (98-107) mmol/L Carbon Dioxide 23 (22-32) mmol/L BUN 7 (7-17) mg/dL Creatinine 0.84 (0.52-1.04) mg/dL Estimated GFR > 60 (>60) mL/min BUN/Creatinine Ratio 8.3 (6-22) Glucose 105 H (70-100) mg/dL Calcium 9.5 (8.4-10.2) mg/dL Total Bilirubin 0.6 (0.2-1.3) mg/dL AST 28 (14-36) IU/L ALT 30 (<35) IU/L Alkaline Phosphatase 65 (38-126) U/L Total Protein 8.0 (6.3-8.2) g/dL Albumin 4.7 (3.5-5.0) g/dL Globulin 3.3 (1.7-4.1) g/dL Albumin/Globulin Ratio 1.4 (1.0-2.8) Lipase 50 (23-300) U/L Urine RBC None seen (0-5/HPF) Urine WBC None seen (0-5/HPF) Ur Squamous Epith Cells 0-1 /hpf (0-5/HPF) Urine Bacteria None seen (None) Ur Culture Indicated? Cult not indicated Point of care testing: Point of Care Testing Test Results Negative Urine Dip Bedside Urine Glucose Negative Bedside Urine Bilirubin - Negative Bedside Urine Ketone ++ 40 Urine Specific [place] 1.01 Bedside Urine Occult Blood - Negative Bedside Urine pH 6.0 Bedside Urine Protein - Negative Bedside Urine Urobilinogen - Negative Bedside Urine Nitrite - Negative Bedside Urine Leukocytes - Negative Esterase Imaging Data CT scan - abdomen/pelvis: Radiologist's Impression: PROCEDURE:? CT ABDOMEN PELVIS W CON ? INDICATIONS:? epigastric pain severe ? TECHNIQUE:? After the administration of oral and intravenous contrast, axial sections acquired from the lung bases to the pubic symphysis.? Coronal and sagittal reformats were performed.? For radiation dose reduction, the following was used:? automated exposure control, adjustment of mA and/or kV according to patient size.? ? COMPARISON:? None. ? FINDINGS:? Image quality:? Excellent.? ? Lung bases:? Unremarkable. Heart:? No significant findings. ? ABDOMEN: Liver:? Unremarkable.? ? Gallbladder:? Unremarkable.? ? Biliary ducts:? Unremarkable.? ? Pancreas:? Unremarkable.? ? Spleen:? Unremarkable.? ? Adrenal Glands:? Unremarkable.? ? Kidneys and Ureters:? Unremarkable.? ? ? Stomach and Bowel:? Stomach, small bowel loops, and colon are unremarkable.? Peritoneum:? No abnormal intraperitoneal fluid.? No free air.? ? Ventral Wall: ? No hernias.? Abdominal Nodes:? No retroperitoneal or mesenteric adenopathy by size criteria.? Vessels:? Aorta and inferior vena cava are normal in size.? ? PELVIS: Pelvic Organs:? Unremarkable.? ? Bladder:? Unremarkable.? ? Pelvic Nodes: No enlarged lymph nodes.? Miscellaneous: No hernias are seen. ? ? What appears to represent a normal appendix is seen at the right lower quadrant containing contrast. ? Bones:? Unremarkable.? IMPRESSION:? Source of epigastric pain not identified.? No sign of intestinal obstruction or perforation.? What appears to be a normal appendix at the right lower quadrant was identified. ? ? Dictated by: Mahad Ambrosio M.D. on 07/20/2022 at 1:23 ? ? Approved by: Mahad Ambrosio M.D. on 07/20/2022 at 1:25 ? ECG Data Interpretation: Normal sinus rhythm rate 55 ID interval 120 QRS [address] changes no T-wave inversions MDM Narrative Medical decision making narrative: Patient is 21 years old presenting with nausea vomiting diarrhea constipation and epigastric pain. Seen evaluated here last night high blood work and ultrasound diagnosed with gastroenteritis here again for increasing pain. Blood work today is overall reassuring stable from yesterday without worsening electrolyte abnormality or LEONID. CT does not show any cause of abdominal pain. She is been given fluids Zofran Protonix and Dilaudid. Overall doing much better than when she 1st came in. Urinalysis is also negative no need for antibiotics. With significant epigastric pain she was having nausea vomiting but I guess that has resolved. The other possibility may be peptic/gastric ulcer. She is an appointment with her primary care provider but not until July. Recommend outpatient omeprazole and pain management. He seems to be tolerating fluids. Possible combo gastroenteritis and an ulcer. Does not meet admission criteria and can be managed at home. Discharge Plan Departure Patient Disposition: Home Clinical Impression: Gastroenteritis, Peptic ulcer Instructions: DI for Viral Gastroenteritis -- Adult, DI for Gastric Ulcer Activity Restrictions/Additional Instructions: 1) You have been diagnosed with gastroenteritis/ulcer 2) What to do: Drink frequent but small amounts of fluids. I recommend Gatorade or a Gatorade-like product, as it has small amounts of sugar and salts that improve fluid retention. 3) Take medications as directed Omeprazole 40 mg twice a day for 2 weeks [place] 1 tablet every 6 hours if needed for severe pain Avoid ibuprofen/NSAIDs it could make ulcers worse 4) Follow up with your primary care provider in 2-3 days 5) Return to ER if you should have any new or worsening symptoms such as, unable to hold down fluids despite use of anti-nausea medications and the small volume oral rehydration strategy. CONTROLLED SUBSTANCE DISCHARGE (Narcotoic/benzodiazepine/Flexeril/Phenergan) 1. You have been prescribed narcotic medications, it does have acetaminophen/Tylenol/paracetamol in it, DO NOT TAKE MORE THAN 4,00mg in 24 hours of Tylenol. TRAMADOL DOES NOT CONTAIN TYLENOL 2. Please understand that we cannot provide further refills of narcotics, benzodiazepines or controlled substances through the ED and her pain management will need to be through your provider. 3. While on these medications you cannot drive or operate heavy machinery. 4. You cannot sign legal documents or perform any duties such as this. 5. As long as you're taking opiate pain medications he should also be taking a stool softener such as Colace, Dulcolax, MiraLAX or prune juice, to help avoid constipation. Prescriptions: New omeprazole 40 mg capsule,delayed release(DR/EC) 40 mg PO BID Qty: 30 0RF hydrocodone-acetaminophen 5-325 mg tablet 1 tab PO Q6H PRN (Reason: pain) Qty: 10 0RF No Action control PO Vitamin D PO metoclopramide HCl 10 mg tablet,disintegrating 10 mg PO Q6H PRN (Reason: nausea and vomiting) Qty: 10 0RF ondansetron 4 mg tablet,disintegrating 4 mg PO Q8H PRN (Reason: nausea and vomiting) Qty: 10 0RF Referrals: Alee Ritter MD [Primary Care Provider] - Stand Alone Forms: Patient Portal/API
[2022-07-20] MEDS: PANTOPRAZOLE 40 MG VIAL IV (01:01)
[2022-07-20] MEDS: ONDANSETRON 4 MG/2 ML INJ IV (01:01)
[2022-07-20] MEDS: SODIUM CHLORIDE 0.9% 1,000 ML 1000 ML IV (01:01)
[2022-07-20] MEDS: HYDROMORPHONE 0.5 MG INJ IV (01:26)
[2022-07-20] MEDS: HYDROCODONE/ACET 5/325 PREPACK 1 BOTTLE MISC (02:14)
[2022-07-20 02:31] VITALS: BP 118/73; PULSE 78; RESP 16; O2SAT 98
== END 2022-07-20 02:33 | disposition home or self-care (01) ==
PROVIDERS: Emergency Provider Emergency Medicine; PCP Family Medicine
DX: K52.9 Noninfective gastroenteritis and colitis, unspecified (principal); K25.9 Gastric ulcer, unspecified as acute or chronic, without hemorrhage or perforation
CPT/HCPCS: 36415; 74177; 76705; 80053; 81003; 81015; 81025; 83690; 85025; 93005; 93010; 96374; 96375; 99284; C9113; J1170; J1885; J2405; Q9967

== ENCOUNTER 2022-07-21 00:48 | Emergency (ER) | payer OTHER, SELFPAY ==
[2022-07-21 00:58] VITALS: BP 118/77; PULSE 96; RESP 18; TEMP 37; O2SAT 96
--- NOTE | 2022-07-21 00:59 | ED.ABDPAIN ---
HPI - Abdominal Pain General Chief Complaint: Abdominal Pain Stated Complaint: Abd pain, headache, been her last 2 nights Time Seen by Provider: 07/21/22 00:57 History of Present Illness HPI narrative: Patient is a 21-year-old presenting today for the 3rd day in a row with ongoing abdominal pain. Last night I saw and evaluated her myself for the 2nd time he had blood work and a CT which were all within normal limits. Thought to have a gastroenteritis versus an ulcer sent home on pain medication and antacid medication. Presents again today with right lower quadrant pain. She reports that she frequently has ?right ovarian pain? however usually goes away this has been lasting for the last couple of hours. She took 1 [place] at 11:30 a.m. and is having severe pain she reports that she vomited once this morning after she did eat a little bit last night. She is not had any fever or chills. She can not get into her PCP until August 08. Related Data Home Medications Medication Instructions Recorded Confirmed control PO 07/18/21 07/18/21 Vitamin D PO 07/18/21 07/18/21 Previous Rx's Medication Instructions Recorded metoclopramide HCl 10 mg 10 mg PO Q6H PRN nausea and 07/19/21 disintegrating tablet vomiting #10 tabs ondansetron 4 mg disintegrating 4 mg PO Q8H PRN nausea and 07/19/22 tablet vomiting #10 tabs hydrocodone 5 mg-acetaminophen 325 1 tab PO Q6H PRN pain #10 tabs 07/20/22 mg tablet omeprazole 40 mg capsule,delayed 40 mg PO BID #30 caps 07/20/22 release Allergies Allergy/AdvReac Type Severity Reaction Status Date / Time No Known Drug Allergies Allergy Verified 07/19/22 23:49 Review of Systems Review of Systems ROS Unobtainable: All systems reviewed & are unremarkable except as noted in HPI and below Patient History Medical History Depression with anxiety Eating disorder Obsessive compulsive disorder Social History Smoking Status: Never smoker Smoking Status: Never smoker alcohol intake frequency: holidays/special occasions only Substance Use Type: marijuana Exam Initial Vital Signs Initial Vital Signs: Vital Signs Temperature 98.6 F 07/21/22 00:58 Pulse Rate 96 H 05/22/23 00:58 Respiratory Rate 18 07/21/22 00:58 Blood Pressure 118/77 07/21/22 00:58 Pulse Oximetry 96 07/21/22 00:58 Oxygen Delivery Method Room Air 07/21/22 00:58 GENERAL: Alert thin 21-year-old female and in no acute distress. HEENT: Head atraumatic,EOMI, pupils reactive, face symmetric, moist mucous membranes CARDIOVASCULAR: Regular rate and rhythm without murmurs, rubs or gallops. RESPIRATORY: Breath sounds equal bilaterally, no wheezes rales or rhonchi. ABDOMEN: Soft, tender right lower quadrant no guarding no rebound EXTREMITIES: Normal range of motion, no clubbing or edema. Neurovascularly intact NEUROLOGICAL: Alert and oriented x4.Normal gait and speech. SKIN: Warm, dry, no laceration, no petechiae, no rashes or lesions. Course Orders Ordered: ED Orders 07/21/22 01:06 US pelvic complete Stat 07/21/22 03:06 XR acute abdomen series Stat 07/21/22 03:33 CBC Auto Diff [Complete Blood Count AUTO DIFF] Stat CMP [Comprehensive Metabolic Panel] Stat Lactate (Lactic Acid) Stat Lipase Stat Discontinued Medications Al Hydrox/Mg Hydrox/Simethicone 20 ml/ Lidocaine HCl 15 ml 0 ml PO NOW ONE Stop: 07/21/22 02:36 Last Admin: 07/21/22 02:44 Dose: 35 ml Documented By: Hydromorphone HCl (Hydromorphone 0.5 Mg Inj) 0.5 mg IV NOW ONE Stop: 07/21/22 04:20 Last Admin: 07/21/22 04:23 Dose: 0.5 mg Documented By: Sodium Chloride (Normal Saline 0.9%) 1,000 mls @ 1,000 mls/hr IV BOLUS ONE Stop: 07/21/22 04:13 Last Infusion: 07/21/22 04:17 Dose: 0 mls/hr Documented By: Admin: 07/21/22 03:29 Dose: 1,000 mls/hr Documented By: Lorazepam (Lorazepam 0.5 Mg Tablet) 0.5 mg PO NOW ONE Stop: 07/21/22 02:30 Last Admin: 07/21/22 02:35 Dose: 0.5 mg Documented By: Lorazepam (Lorazepam 2 Mg/Ml Inj) 1 mg IV NOW ONE Stop: 07/21/22 03:15 Last Admin: 07/21/22 03:30 Dose: 1 mg Documented By: Morphine Sulfate (Morphine 4 Mg/Ml Inj) 4 mg IM NOW ONE Stop: 07/21/22 01:07 Last Admin: 07/21/22 01:21 Dose: 4 mg Documented By: GC Ondansetron HCl (Ondansetron 4 Mg Odt) 4 mg SL NOW ONE Stop: 07/21/22 02:30 Last Admin: 07/21/22 02:35 Dose: 4 mg Documented By: Ondansetron HCl (Ondansetron 4 Mg Odt Prepack) 1 bottle MISC SEEINSTR ONE Stop: 07/21/22 02:30 Last Admin: 07/21/22 02:35 Dose: 1 bottle Documented By: Vital Signs Vital signs: Vital Signs - 8 hr 07/21/22 00:58 07/21/22 02:01 07/21/22 03:14 Temperature 98.6 F Pulse Rate 96 H 82 66 Respiratory Rate 18 18 16 Blood Pressure 118/77 120/82 128/82 Pulse Oximetry 96 97 97 Oxygen Delivery Method Room Air Room Air Room Air MDM - Abdominal Pain Lab Data 07/21/22 03:33 07/21/22 03:33 Labs: Lab Results 07/21/22 07/21/22 07/21/22 Range/Units 03:33 03:33 03:33 WBC 9.9 (4.5-11.0) X10^3/uL RBC 4.44 (4.0-5.2) X10^6/uL Hgb 13.6 (12.0-16.0) g/dL Hct 38.7 (36-46) % MCV 87.1 (80-100) fL MCH 30.5 (26-34) PG MCHC 35.0 (30-36) % RDW 13.5 (11.6-14.8) % Plt Count 230 (150-400) X10^3/uL Neut % (Auto) 44.6 L (50-75) % Lymph % (Auto) 41.3 H (25-40) % [place] % (Auto) 11.2 (3-14) % Eos % (Auto) 1.9 L (2-4) % Baso % (Auto) 1.0 (0-2) % Neut # (Auto) 4400 (0078-4671) /uL Lymph # (Auto) 4100 (7795-1408) /uL [place] # (Auto) 1100 H (0-900) /uL Eos # (Auto) 200 (0-450) /uL Baso # (Auto) 100 (0-100) /uL Sodium 139 (137-145) mmol/L Potassium 3.2 L (3.4-5.1) mmol/L Chloride 105 (98-107) mmol/L Carbon Dioxide 24 (22-32) mmol/L BUN 6 L (7-17) mg/dL Creatinine 0.75 (0.52-1.04) mg/dL Estimated GFR > 60 (>60) mL/min BUN/Creatinine Ratio 8.0 (6-22) Glucose 80 (70-100) mg/dL Lactate 0.9 (0.7-2.1) mmol/L Calcium 9.3 (8.4-10.2) mg/dL Total Bilirubin 0.9 (0.2-1.3) mg/dL AST 24 (14-36) IU/L ALT 24 (<35) IU/L Alkaline Phosphatase 58 (38-126) U/L Total Protein 7.2 (6.3-8.2) g/dL Albumin 4.3 (3.5-5.0) g/dL Globulin 2.9 (1.7-4.1) g/dL Albumin/Globulin Ratio 1.5 (1.0-2.8) Lipase 43 (23-300) U/L Point of care testing: Point of Care Testing Test Results Negative Urine Dip Bedside Urine Glucose Negative Bedside Urine Bilirubin - Negative Bedside Urine Ketone ++ 40 Urine Specific [place] 1.015 Bedside Urine Occult Blood - Negative Bedside Urine pH 7.0 Bedside Urine Protein - Negative Bedside Urine Urobilinogen - Negative Bedside Urine Nitrite - Negative Bedside Urine Leukocytes - Negative Esterase Imaging Data US - ADMINISTRATIVE ASSISTANT OFFICE MANAGER: Radiologist's Impression: Normal right adnexa, negative for ovarian torsion, minor free fluid in posterior cul-de-sac Abdominal x-ray: My Impression: No free air no bowel obstruction MDM Narrative Medical decision making narrative: 21-year-old female frequent recurrent visits to the ED had full workup yesterday now presenting with right lower quadrant pain. The patient is able to give history speak calmly with intermittent grabbing of her right lower quadrant and then she is heard screaming from outside the room without no elevation of heart rate. She is had full workup the last 2 nights. She does not have fever and vitals are stable now I do not think she needs anymore blood work. Pain seems to be more isolated in her right lower quadrant she had a CT that was completely negative last night. No evidence of ovarian cyst on CT. Pelvic ultrasound tonight does not show any significant ovarian cysts or torsions minor free fluid in the cul-de-sac. After ultrasound now again complaining of epigastric pain. Grunting. She said morphine helped a little now feeling nauseous. I do think there is an anxiety component. She is willing to take some Ativan. I have explained that she is going have to see her primary for further workup and pain management. Also explained that omeprazole takes a couple of weeks to work. Patient continues to be moaning heard through the door. Multiple conversations with her about slowing her breathing. He is unable to do so. IV is placed blood work is drawn and x-rays placed. Abdomen is soft but tender. Severe anxiety versus perforation. She is given mg of Ativan IV. She would significant improvement with IV Ativan. X-ray does not show any perforation or bowel obstruction. Overall much calmer. However started complaining of pain. She is 1 dose of Dilaudid I have instructed her that she needs to follow-up and if she needs more pain medication needs to come PCP. However it does appear there is a significant anxiety component to this. She responded very well to IV Ativan. Discharge Plan Departure Patient Disposition: Home Clinical Impression: Gastric ulcer, Pelvic pain, Anxiety Instructions: Anxiety Disorders, DI for Gastric Ulcer Activity Restrictions/Additional Instructions: *You have been diagnosed with probable gastric ulcer ovarian pain *What to do: At this time the emergency department you do not have any ovarian cyst or torsion. It will take time for the omeprazole to kick in and help. You will need further workup such as an EGD with your primary care provider. You may try a call general surgery office to see if they can get you in before to 9th. *Continue to take medications as directed *Follow up with your primary care provider in 2-3 days or call [phone] *Return to ER if you should have [or] any new, worsening or concerning symptoms Prescriptions: No Action control PO Vitamin D PO metoclopramide HCl 10 mg tablet,disintegrating 10 mg PO Q6H PRN (Reason: nausea and vomiting) Qty: 10 0RF ondansetron 4 mg tablet,disintegrating 4 mg PO Q8H PRN (Reason: nausea and vomiting) Qty: 10 0RF omeprazole 40 mg capsule,delayed release(DR/EC) 40 mg PO BID Qty: 30 0RF hydrocodone-acetaminophen 5-325 mg tablet 1 tab PO Q6H PRN (Reason: pain) Qty: 10 0RF Referrals: [facility] [Provider Group] Alee Ritter MD [Primary Care Provider] - Stand Alone Forms: Patient Portal/API
--- NOTE | 2022-07-21 01:06 | DI.US.S_ITS ---
PROCEDURE: US PELVIC COMPLETE INDICATIONS: right ovarian pain TECHNIQUE: Real-time scanning was performed of the pelvic organs, with image documentation. Additional endovaginal scanning was necessary due to incomplete visualization of the adnexal and endometrial structures by transabdominal scanning. COMPARISON: None. FINDINGS: Uterus: The uterus measures 6.2 x 2.9 x 4.2 cm. The endometrium is within normal limits, measuring 8 mm in thickness. Overall echotexture is homogeneous. Ovaries: Right ovary measures a volume of 5 cc. Left ovary measures a volume of 10 cc. Multiple follicles are seen. Color and spectral flows are documented in the right ovary. Other: Trace likely physiologic free fluid. IMPRESSION: No acute sonographic abnormality in the pelvis. No evidence of right ovarian torsion at this time. Agree with prelim report. We strive to produce accurate, complete, and clear reports of imaging services. To assist us in improving patient care, this report was composed using standard report templates and voice recognition software. Therefore, it may contain abnormal punctuation, insertions and/or omissions. Occasional wrong-word or sound-alike substitutions may occur. Though we review the report and make efforts to correct it, we do recommend that the report be read carefully in proper context to recognize any text inaccuracies. Dictated by: Billy Lynch M.D. on 07/21/2022 at 8:43 Approved by: Billy Lynch M.D. on 07/21/2022 at 8:44
[2022-07-21] MEDS: MORPHINE 4 MG/ML INJ IM (01:21)
[2022-07-21 02:01] VITALS: BP 120/82; PULSE 82; RESP 18; O2SAT 97
[2022-07-21] MEDS: ONDANSETRON 4 MG ODT SL (02:35)
[2022-07-21] MEDS: LORazepam 0.5 MG TABLET PO (02:35)
[2022-07-21] MEDS: ONDANSETRON 4 MG ODT PREPACK 1 BOTTLE MISC (02:35)
[2022-07-21] MEDS: MAG HYDROX/ALUMINUM/SIMETH SUS 20 ML, LIDOCAINE VISCOUS 2% 15 ML PO (02:44)
--- NOTE | 2022-07-21 03:06 | DI.RAD.S_ITS ---
PROCEDURE: XR ACUTE ABDOMEN SERIES INDICATIONS: r/o perferation TECHNIQUE: One view chest and two views of the abdomen were acquired. COMPARISON: [facility], CT, CT ABDOMEN PELVIS W CON, 07/20/2022, 1:05. FINDINGS: Surgical changes and devices: None. Chest: Lungs are clear. Heart size is normal. No pleural effusions. No pneumoperitoneum. Abdomen: Focal mildly dilated loop of small bowel is seen in the central abdomen on supine few that does not appear significantly dilated on upright view, possibly within normal limits versus focal ileus or sentinel loop. No suspicious calcifications. Visualized solid organ contours appear normal. Bones: No suspicious bony lesions. IMPRESSION: 1. No pneumoperitoneum. 2. Single short segment of minimally dilated small bowel in the central abdomen is nonspecific and could represent focal ileus. 3. No acute cardiopulmonary abnormality. There is no significant discrepancy when compared to the overnight preliminary report. Approved by: Anatoly Fabian M.D. on 07/21/2022 at 8:36
[2022-07-21 03:14] VITALS: BP 128/82; PULSE 66; RESP 16; O2SAT 97
[2022-07-21] MEDS: SODIUM CHLORIDE 0.9% 1,000 ML 1000 ML IV (03:29)
[2022-07-21] MEDS: LORazepam 2 MG/ML INJ 1 MG IV (03:30)
[2022-07-21 03:42] LABS: Add Manual Diff / Slide Review NO; Basophils Absolute Auto 100 /uL (0-100); Eosinophils Absolute Auto 200 /uL (0-450); Eosinophils Percent Auto 1.9 % (2-4); Hematocrit 38.7 % (36-46); Hemoglobin 13.6 g/dL (12.0-16.0); Lymphocytes Absolute Auto 4100 /uL (1100-4500); Lymphocytes Percent Auto 41.3 % (25-40); Mean Corpuscular Hemoglobin 30.5 PG (26-34); Mean Corpuscular Volume 87.1 fL (80-100); Monocytes Absolute Auto 1100 /uL (0-900); Monocytes Percent Auto 11.2 % (3-14); Neutrophils Absolute Auto 4400 /uL (1500-7000); Neutrophils Percent Auto 44.6 % (50-75); Platelet Count 230 X10^3/uL (150-400); Red Blood Cell Count 4.44 X10^6/uL (4.0-5.2); Red Cell Distribution Width 13.5 % (11.6-14.8); White Blood Cell Count 9.9 X10^3/uL (4.5-11.0)
[2022-07-21 03:51] LABS: Lactate (Lactic Acid) 0.9 mmol/L (0.7-2.1)
[2022-07-21 03:52] LABS: Alanine Aminotransferase 24 IU/L (<35); Albumin 4.3 g/dL (3.5-5.0); Albumin Globulin Ratio 1.5 (1.0-2.8); Alkaline Phosphatase 58 U/L (38-126); Aspartate Aminotransferase 24 IU/L (14-36); Bilirubin Total 0.9 mg/dL (0.2-1.3); Blood Urea Nitrogen 6 mg/dL (7-17); Calcium 9.3 mg/dL (8.4-10.2); Carbon Dioxide 24 mmol/L (22-32); Chloride 105 mmol/L (98-107); Estimated Glomerular Filt Rate > 60 mL/min (>60); Globulin 2.9 g/dL (1.7-4.1); Glucose 80 mg/dL (70-100); HEMOLYSIS < 15 (0-50); Lipase 43 U/L (23-300); Potassium 3.2 mmol/L (3.4-5.1); Sodium 139 mmol/L (137-145); Total Protein 7.2 g/dL (6.3-8.2)
[2022-07-21] MEDS: HYDROMORPHONE 0.5 MG INJ IV (04:23)
== END 2022-07-21 04:48 | disposition home or self-care (01) ==
PROVIDERS: Emergency Provider Emergency Medicine; PCP Family Medicine
DX: K25.9 Gastric ulcer, unspecified as acute or chronic, without hemorrhage or perforation (principal); R10.2 Pelvic and perineal pain; F41.9 Anxiety disorder, unspecified
CPT/HCPCS: 74022; 76830; 76856; 80053; 81003; 81025; 83605; 83690; 85025; 93976; 96361; 96372; 96374; 96375; 99284; J1170; J2060; J2270

== ENCOUNTER 2022-07-25 00:14 | Emergency (ER) | payer OTHER, SELFPAY ==
[2022-07-25 00:24] VITALS: BP 120/65; PULSE 97; RESP 18; TEMP 37.2; O2SAT 98
[2022-07-25 00:30] VITALS: PULSE 82; RESP 27; O2SAT 98
[2022-07-25 00:31] VITALS: BP 106/74; PULSE 86; RESP 24; O2SAT 99
--- NOTE | 2022-07-25 00:37 | ED.CHESTPAIN ---
HPI - Chest Pain General Chief Complaint: Chest Pain Stated Complaint: palpitations, dizziness, and chest pain Time Seen by Provider: 07/25/22 00:29 Source: patient Mode of arrival: Ambulatory Limitations: no limitations History of Present Illness HPI narrative: Patient is a 21-year-old female who is here for evaluation of chest discomfort and dizziness and palpitations. The symptoms did occur earlier today. She is not feeling with the time of my evaluation. She states it felt like her heart was beating fast and beating slow and skipping beats. Has not had these symptoms in the past. No shortness of breath. Related Data Home Medications Medication Instructions Recorded Confirmed control PO 07/18/21 07/18/21 Vitamin D PO 07/18/21 07/18/21 Previous Rx's Medication Instructions Recorded metoclopramide HCl 10 mg 10 mg PO Q6H PRN nausea and 07/19/21 disintegrating tablet vomiting #10 tabs ondansetron 4 mg disintegrating 4 mg PO Q8H PRN nausea and 07/19/22 tablet vomiting #10 tabs hydrocodone 5 mg-acetaminophen 325 1 tab PO Q6H PRN pain #10 tabs 07/20/22 mg tablet omeprazole 40 mg capsule,delayed 40 mg PO BID #30 caps 07/20/22 release Allergies Allergy/AdvReac Type Severity Reaction Status Date / Time No Known Drug Allergies Allergy Verified 07/25/22 00:27 Review of Systems Constitutional Constitutional: Reports system reviewed and no additional complaints, except as documented Cardiovascular Cardiovascular: Reports system reviewed and no additional complaints, except as documented Respiratory Respiratory: Reports system reviewed and no additional complaints, except as documented Gastrointestinal Gastrointestinal: Reports system reviewed and no additional complaints, except as documented Patient History Medical History Depression with anxiety Eating disorder Obsessive compulsive disorder Social History Smoking Status: Never smoker Smoking Status: Never smoker alcohol intake frequency: holidays/special occasions only Substance Use Type: marijuana Exam Initial Vital Signs Initial Vital Signs: Vital Signs Temperature 98.9 F 07/25/22 00:24 Pulse Rate 97 H 07/25/22 00:24 Respiratory Rate 18 07/25/22 00:24 Blood Pressure 120/65 07/25/22 00:24 Pulse Oximetry 98 07/25/22 00:24 Oxygen Delivery Method Room Air 07/25/22 00:24 HENMT Head: normal to inspection and normocephalic Resp Effort & Inspection: normal respiratory effort Auscultation: clear to auscultation bilaterally Cardio Rate: regular rate Rhythm: regular rhythm Course Orders Ordered: ED Orders 07/25/22 00:31 EKG-12 Lead Stat Vital Signs Vital signs: Vital Signs - 8 hr 07/25/22 00:24 07/25/22 00:30 07/25/22 00:31 Temperature 98.9 F Pulse Rate 97 H 82 86 Respiratory Rate 18 27 H 24 Blood Pressure 120/65 Pulse Oximetry 98 98 99 Oxygen Delivery Method Room Air 07/25/22 00:31 Temperature Pulse Rate Respiratory Rate Blood Pressure 106/74 Pulse Oximetry Oxygen Delivery Method MDM - Chest Pain ECG Data Attestation: I personally reviewed and interpreted this ECG as follows: Interpretation: Sinus rhythm Ventricular rate is 73 Sinus arrhythmia Normal QRS Normal QTC No ST T wave changes MDM Narrative Medical decision making narrative: Patient was not having symptoms of the time my evaluation. She has sinus rhythm with sinus arrhythmia noted on the EKG. I did discuss the case with Dr. Crum on-call with Cardiology who evaluated the EKG. He stated that it appears that some of the slower beats have U waves and he felt less likely that this is a [place] heart block. He recommended the patient have an outpatient Holter monitor and echocardiogram. I did discuss this with the patient. Advised that she talk with her primary doctor about obtaining a Holter monitor. No further workup required in the emergency department. Discharge Plan Departure Patient Disposition: Home Clinical Impression: Palpitations Instructions: DI for Palpitations Activity Restrictions/Additional Instructions: Recommend that you continue to take all of your medications as directed. I also recommend that you contact your primary doctor's office to see whether or not they would order a Holter monitor prior to your visit with them the beginning of next month. The Holter monitor would be important to further evaluate the palpitations you had been having. Return to the emergency department for new symptoms. Prescriptions: No Action control PO Vitamin D PO metoclopramide HCl 10 mg tablet,disintegrating 10 mg PO Q6H PRN (Reason: nausea and vomiting) Qty: 10 0RF ondansetron 4 mg tablet,disintegrating 4 mg PO Q8H PRN (Reason: nausea and vomiting) Qty: 10 0RF omeprazole 40 mg capsule,delayed release(DR/EC) 40 mg PO BID Qty: 30 0RF hydrocodone-acetaminophen 5-325 mg tablet 1 tab PO Q6H PRN (Reason: pain) Qty: 10 0RF Referrals: Alee Ritter MD [Primary Care Provider] - Stand Alone Forms: Patient Portal/API
[2022-07-25 01:00] VITALS: BP 131/80; PULSE 68; RESP 16; O2SAT 100
[2022-07-25] MEDS: ONDANSETRON 4 MG ODT PREPACK 1 BOTTLE MISC (01:24)
[2022-07-25] MEDS: ONDANSETRON 4 MG ODT SL (01:26)
[2022-07-25 01:35] VITALS: BMI 17.6
== END 2022-07-25 01:36 | disposition home or self-care (01) ==
PROVIDERS: Emergency Provider Emergency Medicine; PCP Family Medicine
DX: R00.2 Palpitations (principal)
CPT/HCPCS: 93005; 93010; 99283